=== PATIENT | male | born 1965 | race Caucasian/White ===

== ENCOUNTER → 2018-10-21 09:35 | Outpatient (CLI) | payer OTHER, SELFPAY ==
--- NOTE | 2018-10-21 10:16 | DI.RAD.S_ITS ---
PROCEDURE: XR ANKLE RT MIN 3V INDICATIONS: ankle pain TECHNIQUE: 3 views of the ankle were acquired. COMPARISON: None. FINDINGS: Bones: No fractures or dislocations. Ankle mortise is normally aligned. No suspicious bony lesions. 2 adjacent distal tibial metadiaphyseal junction bone islands are incidentally noted. Soft tissues: No tibiotalar joint effusion. Achilles tendon appears normal. IMPRESSION: Source of ankle pain is not seen. Incidental load is made of 2 adjacent small bone islands within the distal tibial metadiaphyseal marrow space. Dictated by: Jay Sun M.D. on 10/21/2018 at 10:37 Approved by: Jay Sun M.D. on 10/21/2018 at 10:38
== END ==
PROVIDERS: PCP Family Medicine; Visit Provider Physician Assistant
DX: M25.571 Pain in right ankle and joints of right foot (principal)
CPT/HCPCS: 73610

== ENCOUNTER → 2018-12-04 07:30 | Outpatient (CLI) | payer OTHER, SELFPAY ==
--- NOTE | 2018-12-04 | DI.NM.S_ITS ---
PROCEDURE: NM GASTRIC EMPTYING STUDY RADIOPHARMACEUTICAL: 1 mCi Tc-99m sulfur colloid in an egg sandwich. INDICATIONS: SMALL INTESTINAL BACTERIAL OVERGROWTH TECHNIQUE: A Tc-99m labeled sulfur colloid labeled egg sandwich or oatmeal was served to the patient. Anterior and posterior planar images of the abdomen were obtained at 0 minutes and 30 minutes, then at hourly intervals up to 4 hours. The patient was upright and ambulating during the interval. COMPARISON: None. FINDINGS: The stomach has normal size, morphology, and position. There is normal emptying of solid gastric contents from the stomach by visual inspection. No gastroesophageal reflux is visualized. The percentage of tracer retained at specific time points are as follows: Time point Percent gastric retention Normal range 30 minutes 50% 70% or more 1 hour 15% 30% to 90% 2 hours 3% 60% or less 3 hours - 30% or less 4 hours - 10% or less IMPRESSION: More rapid gastric emptying than normal suggesting dumping, which could be seen in early diabetes, cyclic vomiting syndrome, functional dyspepsia or postoperative state. Dictated by: Hector George M.D. on 12/04/2018 at 11:42 Approved by: Hector George M.D. on 12/04/2018 at 11:46
== END ==
PROVIDERS: PCP Family Medicine; Visit Provider Internal Medicine Gastroenterology
DX: A48.8 Other specified bacterial diseases (principal)
CPT/HCPCS: 78264; A9541

== ENCOUNTER → 2019-04-05 08:18 | Outpatient (CLI) | payer OTHER, SELFPAY ==
[2019-04-05 10:13] LABS: Add Manual Diff / Slide Review NO; Basophils Absolute Auto 100 /uL (0-100); Basophils Percent Auto 1.4 % (0-2); Eosinophils Absolute Auto 100 /uL (0-450); Eosinophils Percent Auto 2.8 % (2-4); Hematocrit 45.4 % (41-53); Hemoglobin 15.8 g/dL (13.5-17.5); Lymphocytes Absolute Auto 1900 /uL (1100-4500); Lymphocytes Percent Auto 41.2 % (25-40); Mean Corpuscular HGB Conc 34.9 % (30-36); Mean Corpuscular Hemoglobin 30.5 PG (26-34); Mean Corpuscular Volume 87.6 fL (80-100); Monocytes Absolute Auto 400 /uL (0-900); Monocytes Percent Auto 9.3 % (3-14); Neutrophils Absolute Auto 2100 /uL (1500-7000); Neutrophils Percent Auto 45.3 % (50-75); Platelet Count 173 X10^3/uL (150-400); Red Blood Cell Count 5.18 X10^6/uL (4.5-5.9); Red Cell Distribution Width 12.7 % (11.6-14.8); White Blood Cell Count 4.6 X10^3/uL (4.5-11.0)
[2019-04-05 10:29] LABS: Alanine Aminotransferase 24 IU/L (21-72); Albumin 4.7 g/dL (3.5-5.0); Albumin Globulin Ratio 1.5 (1.0-2.8); Alkaline Phosphatase 49 U/L (38-126); Aspartate Aminotransferase 30 IU/L (17-59); BUN Creatinine Ratio 25.6 (6-22); Blood Urea Nitrogen 23 mg/dL (9-20); Calcium 9.3 mg/dL (8.4-10.2); Carbon Dioxide 27 mmol/L (22-32); Chloride 102 mmol/L (98-107); Cholesterol 237 mg/dL (140-199); Estimated Glomerular Filt Rate > 60.0 mL/min (>60); Globulin 3.1 g/dL (1.7-4.1); Glucose 86 mg/dL (70-100); HDL Cholesterol 34 mg/dL (40-60); HEMOLYSIS 49 (0-50); Sodium 138 mmol/L (137-145); Total Protein 7.8 g/dL (6.3-8.2); Triglycerides 404 mg/dL (35-150)
[2019-04-05 10:43] LABS: Vitamin D 25 Hydroxy (D3) 27.8 ng/mL (30.0-100.0)
[2019-04-05 11:03] LABS: Thyroid Stimulating Hormone 0.83 uIU/mL (0.47-4.68)
== END ==
PROVIDERS: Family Provider Family Medicine; PCP Family Medicine; Visit Provider Family Medicine
DX: E78.5 Hyperlipidemia, unspecified (principal); R53.83 Other fatigue; R79.89 Other specified abnormal findings of blood chemistry; Z13.1 Encounter for screening for diabetes mellitus; Z00.00 Encounter for general adult medical examination without abnormal findings
CPT/HCPCS: 36415; 80053; 80061; 82306; 84153; 84443; 85025

== ENCOUNTER → 2019-04-16 11:07 | Outpatient (CLI) | payer OTHER, SELFPAY ==
[2019-04-16 13:06] LABS: Cholesterol 236 mg/dL (140-199); HDL Cholesterol 43 mg/dL (40-60); LDL Cholesterol Calculated 135 mg/dL (<100); Triglycerides 288 mg/dL (35-150)
== END ==
PROVIDERS: PCP Family Medicine; Visit Provider Family Medicine
DX: E78.1 Pure hyperglyceridemia (principal)
CPT/HCPCS: 36415; 80061; 83036

== ENCOUNTER → 2019-05-21 16:03 | Outpatient (CLI) | payer OTHER, SELFPAY ==
--- NOTE | 2019-05-21 | DI.MRI.S_ITS ---
PROCEDURE: MR ANKLE RT WO CON INDICATIONS: Posterior tibial tendinitis, Right ankle pain TECHNIQUE: Noncontrast sagittal T1 spin echo and T2 fast spin echo with fat saturation, axial proton density fast spin echo and T2 fast spin echo with fat saturation, coronal T1 spin echo and T2 fast spin echo with fat saturation through the ankle/hindfoot. COMPARISON: None. FINDINGS: Image quality: Diagnostic Bones and joints: No acute fracture, dislocation, or suspicious osseous lesion is appreciated involving the osseous structures of the midfoot or hindfoot. The ankle mortise is well-maintained. There are no osteochondral defects evident involving the tibial plafond or talar dome. There are mild degenerative changes of the talonavicular joint. There is unusual appearance of the medial cuneiform, which may be related to previous injury or a congenital variant. There are mild degenerative changes of the 1st tarsometatarsal joint. No significant joint effusions are appreciated. Scattered bone islands involving the distal tibia are present as well as the talar dome. Medial structures: The deltoid ligament is intact. Slight increased signal at the navicular attachment of the spring ligament is identified with focal thickening evident (image 21, series 8). Mild periligamentous edema is present within this region. There is slight increased signal involving the tibialis posterior tendon near the level of the navicular. A small amount of fluid is contained within its corresponding tendon sheath. There is also fluid evident within the flexor hallucis longus and flexor digitorum longus tendon sheaths. However, no abnormal signal involving these tendons is evident. The posterior tibial nerve through the tarsal tunnel appears to be within normal limits in size and signal. There is nonspecific mild increased signal involving the abductor hallucis. Lateral structures: The anterior distal tibiofibular ligament is thickened and moderately irregular, but not completely torn. There is increased signal of the posterior distal tibiofibular ligament, which is otherwise intact. The anterior and posterior talofibular ligaments are intact. There is heterogeneity of the posterior talofibular ligament. The calcaneofibular ligament appears to be intact. There is mild increased signal involving the peroneus longus tendon along the posterior margin of the lateral malleolus. Flattening of the peroneus brevis tendon within this region is present. There is slight increased signal within the corresponding tendon sheaths. Anterior structures: The tibialis anterior, extensor hallucis longus, and extensor digitorum longus tendons appear intact. Posterior and plantar structures: Achilles tendon is intact. Moderate thickening involving the medial band of the plantar fascia is present, measuring up to approximately 7 mm. There is edema about this ligament within the adjacent soft tissues. IMPRESSION: 1. Moderate grade sprain of the spring ligament without complete tear. 2. Minimal tibialis posterior tendinopathy with corresponding tenosynovitis. There is also mild tenosynovitis involving the upper medial flexor tendons. 3. Probable sprain of the abductor hallucis. 4. Possible scarring of the lateral ankle ligaments. No complete tears. 5. Mild peroneus longus tendinopathy. 6. Thickening of the plantar fascia is suggestive of plantar fasciitis. Please correlate clinically. 7. Mild degenerative changes of the midfoot joints. Dictated by: Santiago Zepeda M.D. on 05/22/2019 at 10:19 Approved by: Santiago Zepeda M.D. on 05/22/2019 at 10:30
== END ==
PROVIDERS: PCP Family Medicine; Visit Provider Podiatrist
DX: M76.821 Posterior tibial tendinitis, right leg (principal); S93.491A Sprain of other ligament of right ankle, initial encounter; M25.571 Pain in right ankle and joints of right foot; M19.071 Primary osteoarthritis, right ankle and foot; M65.871 Other synovitis and tenosynovitis, right ankle and foot
CPT/HCPCS: 73721

== ENCOUNTER → 2019-08-11 14:09 | Outpatient (CLI) | payer OTHER, SELFPAY ==
--- NOTE | 2019-08-11 | DI.MRI.S_ITS ---
PROCEDURE: MR KNEE LT WO CON INDICATIONS: Unspecified internal derangement of left knee TECHNIQUE: Noncontrast sagittal PD fast spin echo and T2 fast spin echo with fat saturation, sagittal 3-D FLASH with fat saturation; coronal T1 spin echo and PD fast spin echo with fat saturation, and axial PD fast spin echo with fat saturation through the knee. COMPARISON: None. FINDINGS: Image quality: Diagnostic. Bones and joint: There is no acute fracture or dislocation. No suspicious osseous lesions are evident. There is a small knee joint effusion with a small associated Pantoja's cyst. Small moderate size full thickness defects of the hyaline articular cartilage are noted within the patellofemoral compartment, best appreciated at the apex of the medial and lateral patellar facets with areas of degenerative marrow edema evident along the medial patellar facet. No definite additional full-thickness cartilaginous defects are present throughout the knee. Cruciate ligaments: The anterior and posterior cruciate ligaments are intact. Menisci: There is low-grade partial-thickness tearing involving the posterior root of the medial meniscus. With the additional horizontal tear along the periphery of the posterior horn of the medial meniscus is evident with an associated adjacent para meniscal cyst. The lateral meniscus is intact and otherwise unremarkable. Medial structures: Moderate grade partial-thickness tearing of the medial collateral ligament is more pronounced along the anterior margin of the ligament. There is associated overlying soft tissue edema with fluid contained within its corresponding bursa. No complete tear is appreciated. The semimembranosus tendon insertion is intact. The imaged portions of the pes anserinus tendons are unremarkable. No significant fluid is contained within the pes anserinus bursa. Lateral structures: The popliteal tendon is intact. The lateral collateral ligament proper (fibular collateral ligament) and the proximal tibiofibular ligaments are intact. The distal aspect of the biceps femoris tendon and the iliotibial band are intact. Anterior structures: The quadriceps and patellar tendons are intact. Mild increased signal is noted involving the proximal patellar tendon. There is no significant edema in the infrapatellar fat pad. IMPRESSION: 1. Moderate grade partiall-thickness tearing of the medial collateral ligament. 2. Peripheral tearing of the posterior horn of the medial meniscus with involvement of the posterior meniscal root. 3. [id number] patellofemoral chondromalacia. 4. Small knee joint effusion. 5. Mild patellar tendinopathy. Dictated by: Santiago Zepeda M.D. on 08/11/2019 at 15:27 Approved by: Santiago Zepeda M.D. on 08/11/2019 at 15:36
== END ==
PROVIDERS: PCP Family Medicine; Visit Provider Orthopaedic Surgery
DX: S83.222A Peripheral tear of medial meniscus, current injury, left knee, initial encounter (principal); S83.412A Sprain of medial collateral ligament of left knee, initial encounter; M22.42 Chondromalacia patellae, left knee; M25.462 Effusion, left knee; M67.962 Unspecified disorder of synovium and tendon, left lower leg
CPT/HCPCS: 73721

== ENCOUNTER → 2019-09-22 08:16 | Outpatient (CLI) | payer OTHER, SELFPAY ==
[2019-09-22 08:55] LABS: Cholesterol 277 mg/dL (140-199); HDL Cholesterol 37 mg/dL (40-60); Triglycerides 455 mg/dL (35-150)
== END ==
PROVIDERS: PCP Family Medicine; Visit Provider Family Medicine
DX: E78.1 Pure hyperglyceridemia (principal); E78.5 Hyperlipidemia, unspecified; Z82.49 Family history of ischemic heart disease and other diseases of the circulatory system
CPT/HCPCS: 36415; 80061

== ENCOUNTER → 2019-10-30 10:50 | Outpatient (CLI) | payer OTHER, SELFPAY ==
--- NOTE | 2019-10-30 10:52 | DI.RAD.S_ITS ---
PROCEDURE: XR CHEST 2V INDICATIONS: Cough, h/o multiple episode of bronchitis in 1 year TECHNIQUE: 2 views of the chest were acquired. COMPARISON: None. FINDINGS: Surgical changes and devices: Cervical spine fixation hardware is partially seen. Lungs and pleura: Lungs are clear. No pleural effusions or pneumothorax. Mediastinum: Mediastinal contours are normal. Heart size is normal. Bones and chest wall: Mild dextroconvex scoliotic curvature is seen. Age-appropriate bony degenerative changes are seen. No suspicious bony abnormalities. Soft tissues appear unremarkable. IMPRESSION: No acute cardiopulmonary process is seen. Dictated by: Doug Eric M.D. on 10/30/2019 at 10:22 Approved by: Doug Eric M.D. on 10/30/2019 at 10:23
== END ==
PROVIDERS: PCP Family Medicine; Referring Provider Nurse Practitioner; Visit Provider Nurse Practitioner
DX: R05 Cough (principal)
CPT/HCPCS: 71046

== ENCOUNTER → 2019-11-01 09:38 | Outpatient (CLI) | payer OTHER, SELFPAY ==
[2019-11-01 11:23] LABS: Influenza A - CEPHEID Flu A NEGATIVE (NEGATIVE); Influenza B - CEPHEID Flu B NEGATIVE (NEGATIVE)
== END ==
PROVIDERS: PCP Family Medicine; Visit Provider Registered Nurse
DX: J40 Bronchitis, not specified as acute or chronic (principal)
CPT/HCPCS: 87502

== ENCOUNTER → 2019-11-12 08:00 | Outpatient (CLI) | payer OTHER, SELFPAY ==
[2019-11-12 09:36] LABS: Hep C Virus Ab w/Reflex Quant NEGATIVE s/c (NEGATIVE)
== END ==
PROVIDERS: PCP Family Medicine; Referring Provider Dermatology; Visit Provider Dermatology
DX: L30.9 Dermatitis, unspecified (principal)
CPT/HCPCS: 36415; 86803

== ENCOUNTER 2019-11-24 19:19 | Observation (INO) | payer OTHER, SELFPAY ==
[2019-11-24 19:23] VITALS: BP 123/58; PULSE 77; RESP 22; TEMP 36.2; O2SAT 100
--- NOTE | 2019-11-24 19:37 | DI.RAD.S_ITS ---
PROCEDURE: XR ACUTE ABDOMEN SERIES INDICATIONS: abd pain/nausea TECHNIQUE: One view chest and two views of the abdomen were acquired. COMPARISON: None. FINDINGS: Surgical changes and devices: Fusion hardware in lower cervical spine is seen. Chest: Lungs are clear. Heart size is normal. No pleural effusions. No pneumoperitoneum. Abdomen: Bowel gas pattern is nonspecific for obstruction. No suspicious calcifications. Visualized solid organ contours appear normal. Bones: No suspicious bony lesions. IMPRESSION: Nonspecific bowel gas pattern. No gross free air. No acute cardiopulmonary pathology. Dictated by: Braulio Reed M.D. on 11/24/2019 at 20:22 Approved by: Braulio Reed M.D. on 11/24/2019 at 20:23
[2019-11-24] MEDS: ONDANSETRON 4 MG/2 ML INJ IV (20:12)
[2019-11-24 20:17] LABS: Add Manual Diff / Slide Review NO; Basophils Absolute Auto 0 /uL (0-100); Basophils Percent Auto 0.3 % (0-2); Eosinophils Absolute Auto 0 /uL (0-450); Eosinophils Percent Auto 0.1 % (2-4); Hematocrit 44.1 % (41-53); Hemoglobin 15.3 g/dL (13.5-17.5); Lymphocytes Absolute Auto 1400 /uL (1100-4500); Lymphocytes Percent Auto 12.1 % (25-40); Mean Corpuscular HGB Conc 34.8 % (30-36); Mean Corpuscular Hemoglobin 30.3 PG (26-34); Monocytes Absolute Auto 400 /uL (0-900); Monocytes Percent Auto 3.4 % (3-14); Neutrophils Absolute Auto 9400 /uL (1500-7000); Neutrophils Percent Auto 84.1 % (50-75); Platelet Count 203 X10^3/uL (150-400); Red Blood Cell Count 5.07 X10^6/uL (4.5-5.9); Red Cell Distribution Width 13.2 % (11.6-14.8); White Blood Cell Count 11.2 X10^3/uL (4.5-11.0)
[2019-11-24 20:20] LABS: Alanine Aminotransferase 32 IU/L (<50); Albumin 4.7 g/dL (3.5-5.0); Albumin Globulin Ratio 1.5 (1.0-2.8); Alkaline Phosphatase 56 U/L (38-126); Aspartate Aminotransferase 32 IU/L (17-59); BUN Creatinine Ratio 22.5 (6-22); Bilirubin Total 0.8 mg/dL (0.2-1.3); Blood Urea Nitrogen 18 mg/dL (9-20); Calcium 9.8 mg/dL (8.4-10.2); Carbon Dioxide 23 mmol/L (22-32); Chloride 105 mmol/L (98-107); Estimated Glomerular Filt Rate > 60.0 mL/min (>60); Globulin 3.2 g/dL (1.7-4.1); Glucose 121 mg/dL (70-100); HEMOLYSIS < 15 (0-50); Lipase 59 U/L (23-300); Potassium 4.1 mmol/L (3.4-5.1); Sodium 137 mmol/L (137-145); Total Protein 7.9 g/dL (6.3-8.2)
--- NOTE | 2019-11-24 20:28 | ED_ITS ---
HPI - Abdominal Pain General Chief Complaint: Abdominal Pain Stated Complaint: severe stomach pain Time Seen by Provider: 11/24/19 20:28 Source: patient Mode of arrival: Ambulatory Limitations: no limitations History of Present Illness HPI narrative: 54-year-old male comes in with complaint of abdominal pain. Patient states pain started about 6 hours prior to arrival. Started as crampy with increasing frequency and is now constant. Patient states now radiating towards his back. He states it has not changed location. Sort of mid upper abdomen. Patient has not had fevers but he has felt chilled. He has not been sweaty. Denies chest pain or shortness of breath. Denies any change in location of the pain other than now radiating towards his back. He has not had a bowel movement in about 12:24 p.m. he has been nauseated, tried to name a comes all vomit but was unable to. He states before he had a normal bowel movement. He does not think he has a passing gas for about 12 hours. Patient states he has had back surgery in the past. He has also had hernia repair when he was a young child. He has not had any other surgeries. He states he is not on any medications regularly. No current tobacco, occasional alcohol, no illicit street drugs. Dr. Avilez is his primary care. Related Data Previous Rx's Medication Instructions Recorded zolpidem 10 mg tablet 10 mg PO BEDTIME PRN #90 tab 08/10/19 Allergies Allergy/AdvReac Type Severity Reaction Status Date / Time No Known Drug Allergies Allergy Verified 11/01/19 08:45 Review of Systems Review of Systems ROS Unobtainable: All systems reviewed & are unremarkable except as noted in HPI and below Patient History Medical History Genital herpes (Acute) Hyperlipidemia (Chronic) Insomnia (Chronic) Small intestinal bacterial overgrowth (Chronic) Social History marital status: household members: family housing: house education level: college occupational status: employed Smoking Status: Former smoker second hand exposure: No alcohol intake: current substance use type: does not use Smoking Status: Former smoker Exam Narrative Exam Narrative: GENERAL: Alert and oriented x three, obese, well-appearing male in moderate distress. HEENT: Head normocephalic, atraumatic, EOMI, pupils reactive, face symmetric, moist mucous membranes NECK: Supple, full range of motion CARDIOVASCULAR: Regular rate and rhythm without murmurs, rubs or gallops. RESPIRATORY: Breath sounds equal bilaterally, no wheezes rales or rhonchi. ABDOMEN: Soft, no increase in tenderness with palpation but does make patient nauseated. Particularly epigastric and upper abdominal bilaterally, no lower abdominal tenderness. Normoactive bowel sounds all 4 quadrants. No guarding or rebound, rigidity, no pulsatile mass, no bruit : No CVA tenderness EXTREMITIES: Normal range of motion, no clubbing or edema. Cap refill less than 2 seconds of bilateral lower extremities. Neurovascularly intact NEUROLOGICAL: Cranial nerves II through XII grossly intact. Moving all extremities SKIN: Warm, dry, no petechiae, no rashes or lesions. Initial Vital Signs Initial Vital Signs: Vital Signs Temperature 97.1 F L 11/24/19 19:23 Pulse Rate 77 11/24/19 19:23 Respiratory Rate 22 11/24/19 19:23 Blood Pressure 123/58 L 11/24/19 19:23 Pulse Oximetry 100 11/24/19 19:23 Course Orders Ordered: ED Orders 11/24/19 19:37 XR acute abdomen series Stat 11/24/19 19:42 EKG-12 Lead Stat 11/24/19 19:45 Complete Blood Count AUTO DIFF Stat Comprehensive Metabolic Panel Stat Lipase Stat Troponin I Stat 11/24/19 20:47 CT angio chest abdomen pelvis Stat Hydromorphone HCl (Dilaudid) 0.5 mg IV Q2H PRN PRN Reason: Pain, Severe (7-10) Last Admin: 11/25/19 04:02 Dose: 0.5 mg Documented by: Admin: 11/25/19 02:07 Dose: 0.5 mg Documented by: Admin: 11/25/19 00:11 Dose: 0.5 mg Documented by: ADELFO Sodium Chloride (Normal Saline 0.9%) 1,000 mls @ 125 mls/hr IV CONT XIOMY Last Admin: 11/24/19 23:47 Dose: 125 mls/hr Documented by: ADELFO Ondansetron HCl (Zofran) 4 mg IV Q4HR PRN PRN Reason: Nausea And Vomiting Zolpidem Tartrate (Ambien) 10 mg PO BEDTIME PRN PRN Reason: Sleep Last Admin: 11/25/19 00:11 Dose: 5 mg Documented by: ADELFO Discontinued Medications Hydromorphone HCl (Dilaudid) 0.5 mg IV NOW ONE Stop: 11/24/19 21:50 Last Admin: 11/24/19 21:59 Dose: 0.5 mg Documented by: AMNA Sodium Chloride (Normal Saline 0.9%) 1,000 mls @ 1,000 mls/hr IV BOLUS ONE Stop: 11/24/19 21:28 Last Infusion: 11/24/19 21:04 Dose: 0 mls/hr Documented by: Admin: 11/24/19 20:32 Dose: 1,000 mls/hr Documented by: ANDREZ Piperacillin/Tazobactam/Dextrose (Zosyn) 3.375 gm in 50 mls @ 100 mls/hr IV NOW ONE Stop: 11/24/19 22:20 Last Infusion: 11/24/19 22:50 Dose: 0 mls/hr Documented by: Admin: 11/24/19 22:37 Dose: 100 mls/hr Documented by: CHASE Morphine Sulfate (Morphine) 4 mg IV NOW ONE Stop: 11/24/19 20:48 Last Admin: 11/24/19 21:10 Dose: 4 mg Documented by: CHASE Ondansetron HCl (Zofran) 4 mg IV NOW ONE Stop: 11/24/19 19:34 Last Admin: 11/24/19 20:12 Dose: 4 mg Documented by: ANDREZ Vital Signs Vital signs: Vital Signs - 8 hr 11/24/19 21:00 Pulse Rate 67 Respiratory Rate 20 Blood Pressure [Right Arm] 127/27 L Pulse Oximetry 99 MDM - Abdominal Pain Lab Data Attestation: I reviewed the patient's lab results. Result diagrams: 11/24/19 19:45 11/24/19 19:45 Labs: Lab Results 11/24/19 11/24/19 Range/Units 19:45 19:45 WBC 11.2 H (4.5-11.0) X10^3/uL RBC 5.07 (4.5-5.9) X10^6/uL Hgb 15.3 (13.5-17.5) g/dL Hct 44.1 (41-53) % MCV 87.0 (80-100) fL MCH 30.3 (26-34) PG MCHC 34.8 (30-36) % RDW 13.2 (11.6-14.8) % Plt Count 203 (150-400) X10^3/uL Neut % (Auto) 84.1 H (50-75) % Lymph % (Auto) 12.1 L (25-40) % [place] % (Auto) 3.4 (3-14) % Eos % (Auto) 0.1 L (2-4) % Baso % (Auto) 0.3 (0-2) % Neut # (Auto) 9400 H (1427-5286) /uL Lymph # (Auto) 1400 (4910-5298) /uL [place] # (Auto) 400 (0-900) /uL Eos # (Auto) 0 (0-450) /uL Baso # (Auto) 0 (0-100) /uL Sodium 137 (137-145) mmol/L Potassium 4.1 (3.4-5.1) mmol/L Chloride 105 (98-107) mmol/L Carbon Dioxide 23 (22-32) mmol/L BUN 18 (9-20) mg/dL Creatinine 0.80 (0.66-1.25) mg/dL Estimated GFR > 60.0 (>60) mL/min BUN/Creatinine Ratio 22.5 H (6-22) Glucose 121 H (70-100) mg/dL Calcium 9.8 (8.4-10.2) mg/dL Total Bilirubin 0.8 (0.2-1.3) mg/dL AST 32 (17-59) IU/L ALT 32 (<50) IU/L Alkaline Phosphatase 56 (38-126) U/L Troponin I < 0.012 (0.01-0.034) ng/mL Total Protein 7.9 (6.3-8.2) g/dL Albumin 4.7 (3.5-5.0) g/dL Globulin 3.2 (1.7-4.1) g/dL Albumin/Globulin Ratio 1.5 (1.0-2.8) Lipase 59 (23-300) U/L Imaging Data Abdominal x-ray: Radiologist's Impression: [address] [address] XRay Report Signed Patient: Lazara Perez#: [id number] : 1965Acct:[id number] Age/Sex: 54 / MDate of Service: 11/24/19 Loc: ED Accession Number: [id number] Procedure: XR acute abdomen series Ordering Provider: Lisseth Martinez D.O. PROCEDURE: XR ACUTE ABDOMEN SERIES INDICATIONS: abd pain/nausea TECHNIQUE: One view chest and two views of the abdomen were acquired. COMPARISON: None. FINDINGS: Surgical changes and devices: Fusion hardware in lower cervical spine is seen. Chest: Lungs are clear. Heart size is normal. No pleural effusions. No pneumoperitoneum. Abdomen: Bowel gas pattern is nonspecific for obstruction. No suspicious calcifications. Visualized solid organ contours appear normal. Bones: No suspicious bony lesions. IMPRESSION: Nonspecific bowel gas pattern. No gross free air. No acute cardiopul monary pathology. Dictated by: Braulio Reed M.D. on 11/24/2019 at 20:22 Approved by: Braulio Reed M.D. on 11/24/2019 at 20:23 ECG Data Attestation: I personally reviewed and interpreted this ECG as follows: Prior ECG tracings: not available for review Interpretation: Sinus rhythm rate of 73 P are 150 QRS of [address] depression in lead 3, not appreciated in 2 or AVF. No elevation appreciated. Incomplete bundle branch block. No prior for review. MDM Narrative Medical decision making narrative: Of abdominal pain started out crampy now constant radiating also towards his back. His initial labs show mildly elevated white count with neutrophils 84, patient labs show glucose of 121 but otherwise normal electrolytes and LFTs with a negative lipase. Troponin is negative and patient does not have any acute ST changes on his EKG. Was given IV fluids, Zofran and morphine for pain control, on recheck patient is still quite uncomfortable. Angio was involved patient may have more gallbladder or possibly colitis or bowel obstruction as he has not had a bowel movement but with his radiation to his back there is some concern for possible dissection. Patient is not hypertensive in the department. Imaging shows appendicitis. Discussed with Dr. Mejia with General surgery, plan for IV antibiotics and Zosyn was started. Plan for NPO and surgery this a.m.. Patient is feeling much better after 2nd dose of pain medication. Discharge Plan Departure Patient Disposition: Admitted as Observation Clinical Impression: Acute appendicitis Discharge Date/Time: 11/24/19 22:52 Referrals: Geovanna Avilez MD [Primary Care Provider] - Admit Date/Time: 11/24/19 22:12 Admit Provider: Silver Mejia
[2019-11-24 20:32] LABS: Troponin I < 0.012 ng/mL (0.01-0.034)
[2019-11-24] MEDS: SODIUM CHLORIDE 0.9% 1,000 ML 1000 ML IV (20:32)
--- NOTE | 2019-11-24 20:47 | DI.CT.S_ITS ---
PROCEDURE: CT ANGIO CHEST ABDOMEN PELVIS INDICATIONS: mid abdominal pain, radiates to back, no BM x 12 hrs, no vom TECHNIQUE: Precontrast 5 mm thick sections acquired from the lung apices to the iliac crests. After the administration of intravenous contrast, 2.5 mm thick sections again acquired from the lung apices to the iliac crests. Maximum intensity projection (MIP) oblique sagittal and coronal reformats were then acquired. For radiation dose reduction, the following was used: automated exposure control. COMPARISON: None. FINDINGS: Image quality: Excellent. AORTA: Thoracic and abdominal aorta is normal in size. There is no aortic dissection or aneurysm. Mild atherosclerotic disease in distal abdominal aorta is seen. CHEST: Lungs and pleura: No acute airspace opacities. No pleural effusions or pneumothorax. Central and peripheral airways are patent and normal in caliber. Mediastinum: Heart size is normal. No pericardial effusion. No mediastinal or hilar adenopathy by size criteria. Central pulmonary arteries are normal in size. Esophagus is normal in caliber. No hiatal hernias. Bones and chest wall: No axillary adenopathy by size criteria. Thyroid gland is within normal limits. No suspicious bony lesions. No vertebral body compression fractures. ABDOMEN: Vasculature: Celiac trunk and mesenteric arteries are patent. Renal arteries are also patent. Solid organs: Liver is normal in size and enhancement. There is moderate to severe hepatic steatosis. Gallbladder is unremarkable.. Biliary system is non dilated. Pancreas enhances normally. Spleen is normal in size and enhancement. No adrenal nodules. Both kidneys are normal in size and enhancement, without hydronephrosis. Peritoneum and bowel: There is no bowel obstruction. Appendix appears enlarged with mild periappendiceal fat stranding and appendiceal wall thickening. Multiple appendicoliths are seen and measures up to 8 mm in size near the neck of the appendix. Finding is concerning for uncomplicated acute appendicitis. No abscess collection. No other area of abnormal bowel wall thickening. No free fluid or free air. Nodes and vessels: No retroperitoneal or mesenteric adenopathy by size criteria. Inferior vena cava is normal in morphology. Miscellaneous: No ventral hernias. PELVIS: Genitourinary: Bladder wall thickness is normal. Miscellaneous: No inguinal hernias or adenopathy. No ventral hernias. Bones: No suspicious bony lesions. No vertebral body compression fractures. Degenerative endplate changes throughout thoracic and lumbar spine is seen. IMPRESSION: 1. No aortic aneurysm or dissection. [place]. branches of thoracic and abdominal aorta show no hemodynamically significant stenosis or aneurysm. No gross pulmonary emboli. 2. Finding is concerning for uncomplicated acute appendicitis with appendicoliths. No abscess collection. No free fluid or free air. 3. Hepatic steatosis. Dictated by: Braulio Reed M.D. on 11/24/2019 at 21:17 Approved by: Braulio Reed M.D. on 11/24/2019 at 21:21
[2019-11-24 21:00] VITALS: BP 127/27; PULSE 67; RESP 20; O2SAT 99
[2019-11-24] MEDS: MORPHINE 4 MG/ML INJ IV (21:10)
[2019-11-24] MEDS: HYDROMORPHONE 0.5 MG INJ IV (21:59)
[2019-11-24 22:30] VITALS: BP 137/82; PULSE 74; RESP 18; O2SAT 96
[2019-11-24] MEDS: PIPERACILLIN-TAZO 3.375 GM/50 ML FROZ.PIGGY IV (22:37)
--- NOTE | 2019-11-24 22:57 | PC.ADMIT ---
[email or web address] Admission Note: The patient,Orlando Perez,54 y/o, was given written information regarding hospital policies, unit procedures and contact persons. Pt arrived from ED. A/OX4. VSS. RA. Denies pain presently. Oriented to room and call system. Patient's smoking status: Former smoker. Vital Signs - 8 hr 11/24/19 19:23 11/24/19 21:00 11/24/19 22:30 Temperature 97.1 F L Pulse Rate 77 67 74 Respiratory Rate 22 20 18 Blood Pressure 123/58 L Blood Pressure [Right Arm] 127/27 L 137/82 Pulse Oximetry 100 99 96
[2019-11-24 23:00] VITALS: BP 125/82; PULSE 73; RESP 16; TEMP 36.4; O2SAT 96
[2019-11-24] MEDS: SODIUM CHLORIDE 0.9% 1,000 ML 125 ML IV (23:47)
[2019-11-24 23:49] VITALS: BMI 31.1
[2019-11-25] VITALS (21 sets, daily range): BP systolic 85–130; BP diastolic 54–87; PULSE 77–98; RESP 13–23; TEMP 36.2–37; O2SAT 86–98
--- NOTE | 2019-11-25 | PATH_ITS ---
[facility] Accession Number: [id number] . 01 Material submitted: . appendix - APPENDIX . 01 Clinical history: . SEVERE STOMACH PAIN . 02 Diagnosis: Appendix, Appendectomy: Acute appendicitis and serositis. MRV 11/29/2019 1602 Local . 02 Electronically signed: . Iraida Sherwood MD, Pathologist NPI- [id number] . 01 Gross description: . Received in formalin, labeled appendix, is an intact appendix (length-8.7 cm, diameter-1.0 cm) with jones-pink, smooth, focally exudate-covered serosa and attached mesoappendix (up to 1.2 cm in depth). The resection margin is received open. The lumen contains red-brown, solid-soft material and brown, turbid fluid. The wall is up to 0.2 cm thick. No nodules, masses or lesions are identified. The resection margin is inked blue. Section code: (A1) resection margin en face and three [employer]eles[employer] representative serial sections; (A2) one-half of the bivalved tip. ([id number]) /MRV 11/26/2019 1339 Local . 02 Pathologist provided ICD-10: K35.80 . 02 CPT . 526703 Performed at: 01 [facility] [address], [place], [place] [id number] MD Garcia Ruiz MD Phone: [phone] Performed at: 02 [facility] [address] [place], [place] [id number] MD Radha Lewis MD Phone: [phone]
[2019-11-25] MEDS: ZOLPIDEM 5 MG TABLET 10 MG PO (00:11)
[2019-11-25] MEDS: HYDROMORPHONE 0.5 MG INJ IV ×3 (00:11→04:02)
--- NOTE | 2019-11-25 01:26 | PC.ADMIT ---
Addendum entered by Rika Serrato R.N. 11/25/19 06:25: Surgical staff here to take patient to surgery. Original Note: Up to acute care from ER per stretcher at 2250. Is alert and oriented. Breath sounds CTA with RA sat of 96%. HRR. Denies current nausea. BT present and abdomen is soft; denies tenderness. Is having mid abdominal pain which he states is 5/10 severity and feels crampy; medicated with Dilaudid. States he has not voided since prior to coming to ER; will monitor. Is able to move self in bed and safe for independent ambulation but instructed to call for assistance when getting up to bathroom due to IV. Skin intact. Requested Ambien for sleep (usually takes 10mg every night at home) so Dr Mejia contacted and order received; patient requested only 5mg at this time. Is NPO for planned appendectomy in a.m. and patient verbalizes understanding. Fall risk score is moderate; patient verbalizes agreement to call for assistance. [email or web address] Admission Note: The patient,Orlando Perez,54 y/o, was given written information regarding hospital policies, unit procedures and contact persons. Patient's smoking status: Former smoker. Vital Signs - 8 hr 11/24/19 19:23 11/24/19 21:00 11/24/19 22:30 Temperature 97.1 F L Pulse Rate 77 67 74 Respiratory Rate 22 20 18 Blood Pressure 123/58 L Blood Pressure [Right Arm] 127/27 L 137/82 Pulse Oximetry 100 99 96 11/24/19 23:00 Temperature 97.5 F L Pulse Rate 73 Respiratory Rate 16 Blood Pressure 125/82 Blood Pressure [Right Arm] Pulse Oximetry 96
[2019-11-25 03:56] LABS: Bacteria Urine None Seen; RBC Urine None Seen (0-5/HPF); WBC Urine None Seen (0-5/HPF)
[2019-11-25 03:57] LABS: Appearance Urine UA CLEAR; Bilirubin Urine UA NEGATIVE (NEGATIVE); Color Urine UA YELLOW; Glucose Urine UA NEGATIVE (Negative); Ketones Urine UA NEGATIVE (NEGATIVE); Leukocyte Esterase Urine UA NEGATIVE (NEGATIVE); Nitrite Urine UA NEGATIVE (Negative); Occult Blood Urine UA NEGATIVE (Negative); Protein Urine UA NEGATIVE (Negative); Urobilinogen Urine UA 0.2 E.U./dL (0.2); pH Urine UA 6.5 (4.5-8.0)
[2019-11-25 04:05] LABS: Culture Indicated Urine Cult Not Indicated
--- NOTE | 2019-11-25 05:58 | P.HP_ITS ---
History of Present Illness History of Present Illness Date Patient Seen: 11/25/19 Time Patient Seen: 05:58 Chief complaint: severe stomach pain Narrative: 54-year-old white male with 1 day history of lower abdominal pain actually somewhat radiating into his back now centered in the right lower abdomen. He has had some nausea no vomiting he has had no diarrhea. He came to the emergency department last night where [place] [id number] scan was done which demonstrates acute uncomplicated appendicitis. 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 He denies diabetes heart disease or hypertension has no significant medical history but has had spine john rgery in the past Patient History Medical History Genital herpes (Acute) Hyperlipidemia (Chronic) Insomnia (Chronic) Small intestinal bacterial overgrowth (Chronic) Family & Social History Family History Father Myocardial infarction Mother Ovarian cancer Social History: household members family Prior Living Arrangements House Safety & Behavioral: Feels Safe in Current Yes Environment Been Physically Hurt or No Threatened By a Person Suicidal Ideation Description None Tobacco & Substance use: Tobacco type cigarettes Smoking Status Former smoker alcohol intake current alcohol intake frequency holiday/special occasion Substance Use Type does not use Meds Home Medications and Allergies Home Medications Medication Instructions Recorded Confirmed Type zolpidem 10 mg tablet 10 mg PO BEDTIME PRN #90 tab 08/10/19 11/25/19 Rx Allergies Allergy/AdvReac Type Severity Reaction Status Date / Time No Known Drug Allergies Allergy Verified 11/01/19 08:45 Review of Systems Review of Systems ROS: Yes All systems reviewed with the patient and are negative except as otherwise documented Exam Vital Signs (past 8 hours): - 11/24/19 22:30 11/24/19 23:00 11/25/19 05:05 Temperature 97.5 F L 98.3 F Pulse Rate 74 73 87 Respiratory Rate 18 16 16 Blood Pressure 125/82 130/78 Blood Pressure [Right Arm] 137/82 Pulse Oximetry 96 96 94 Oxygen Delivery Method Room Air Oxygen Flow Rate 0 Narrative Exam Narrative: Patient is afebrile complaining of right lower abdominal pain Ears nose and throat are normal Neck no adenopathy Lungs are clear with no rales or wheezes Heart regular rhythm no murmur Abdomen shows exquisite right lower quadrant tenderness with guarding and some rebound tenderness. No masses are palpated there is no organomegaly. Extremities are normal neurologic intact Objective Labs Result Diagrams: 11/24/19 19:45 11/24/19 19:45 Labs: Laboratory Results - last 24 hr 11/24/19 11/24/19 11/25/19 19:45 19:45 03:30 WBC 11.2 H RBC 5.07 Hgb 15.3 Hct 44.1 MCV 87.0 MCH 30.3 MCHC 34.8 RDW 13.2 Plt Count 203 Neut % (Auto) 84.1 H Lymph % (Auto) 12.1 L [place] % (Auto) 3.4 Eos % (Auto) 0.1 L Baso % (Auto) 0.3 Neut # (Auto) 9400 H Lymph # (Auto) 1400 [place] # (Auto) 400 Eos # (Auto) 0 Baso # (Auto) 0 Sodium 137 Potassium 4.1 Chloride 105 Carbon Dioxide 23 BUN 18 Creatinine 0.80 Estimated GFR > 60.0 BUN/Creatinine Ratio 22.5 H Glucose 121 H Calcium 9.8 Total Bilirubin 0.8 AST 32 ALT 32 Alkaline Phosphatase 56 Troponin I < 0.012 Total Protein 7.9 Albumin 4.7 Globulin 3.2 Albumin/Globulin Ratio 1.5 Lipase 59 Urine Color Yellow Urine Appearance Clear Urine pH 6.5 Ur Specific [place] 1.020 Urine Protein Negative Urine Glucose (UA) Negative Urine Ketones Negative Urine Occult Blood Negative Urine Nitrate Negative Urine Bilirubin Negative Urine Urobilinogen 0.2 Ur Leukocyte Esterase Negative Urine RBC None seen Urine WBC None seen Urine Bacteria None seen Ur Culture Indicated? Cult not indicated Assessment & Plan Assessment & Plan narrative: Patient has acute uncomplicated appendicitis based on imaging history and physical. He has received intravenous Zosyn and IV fluids overnight. He is now ready for appendectomy early this morning. The patient understands and agrees and has no unanswered questions
[2019-11-25] MEDS: LACTATED RINGERS 1,000 ML 120 ML IV ×2 (06:30→07:58)
[2019-11-25] MEDS: PIPERACILLIN-TAZO 3.375 GM/50 ML FROZ.PIGGY IV (06:40)
--- NOTE | 2019-11-25 06:55 | SUR.OPER ---
Supine on padded OR bed, head on pillow, arms secured on padded arm boards at <90 degrees abduction, legs uncrossed, safety belt at thigh, tape over blanket over lower legs.
[2019-11-25] MEDS: BUPIVACAINE 0.5% W/ EPI (PF) 10 ML VIAL 30 ML INJ (07:04)
[2019-11-25] MEDS: SODIUM CHLORIDE IRRIG SOLUTION 1,000 ML, BACITRACIN 50,000 UNIT IRR (07:07)
[2019-11-25] MEDS: NEOMYCIN/POLYMYXIN/BACITRA UD OINT 1 EACH TOP (07:08)
--- NOTE | 2019-11-25 07:27 | PM.OP.1 ---
Operative Date/Time/Diagnoses Date of procedure: 11/25/19 Time of procedure: 07:27 Pre-op diagnosis: Acute uncomplicated appendicitis Post-op diagnosis: same Procedure & Clinicians Procedure: Appendectomy Same procedure as scheduled: Yes Surgeon: Silver Mejia Click Yes if Unassisted: Yes Anesthesia Type: General Operative Notes Findings: Gangrenous acute appendicitis without abscess Closure Type: primary Specimen(s): other (Peritoneal cultures and gangrenous appendix) Estimated Blood Loss (mL): 50 Blood products transfused: none Procedure in detail: The patient was properly identified during surgical pause prepped and draped in a sterile fashion exposure of the right lower quadrant of the abdomen. A standard Brandan-Ricardo incision was made over McBurney's point. The oblique muscles split in the great iron fashion so as to expose the peritoneum which was elevated and entered avoiding injury to the underlying structures. The cecum was rotated into the wound. I could palpate an enlarged appendix which was then delivered into the wound as well. The appendix was gangrenous. There was no abscess formation. There was turbid fluid around the appendix which was cultured for aerobes and anaerobes. The mesoappendix divided between clamps the vessels ligated with 2 0 Vicryl for excellent hemostasis the base the appendix was closed with a TA 30? stapler and the appendix was removed above the staple line. In the staple line was intact there was no bleeding. The cecum rotated back into the pelvis. The pelvis was then irrigated with a L of sterile saline containing bacitracin. There was no purulence no bleeding. The peritoneum closed with running 2 0 Vicryl. The fascia closed with 1. PDS. The subcu irrigated with bacitracin saline and the skin closed with celestino sterile dressings applied procedure was very well tolerated. Complications: none Post-operative Condition: stable Disposition: PACU
[2019-11-25] MEDS: HYDROMORPHONE 2 MG INJ IV ×3 (07:55→08:07)
[2019-11-25] MEDS: GABAPENTIN 300 MG CAPSULE PO (08:29)
[2019-11-25] MEDS: ACETAMINOPHEN 325 MG TABLET 975 MG PO (08:29)
--- NOTE | 2019-11-25 08:39 | SUR.PHASEI ---
Patient transferred to the floor by Roseline
[2019-11-25] MEDS: SODIUM CHLORIDE 0.9% FLUSH 10 ML IV (10:00)
[2019-11-25] MEDS: LACTATED RINGERS 1,000 ML 100 ML IV ×2 (10:00→21:28)
[2019-11-25] MEDS: KETOROLAC 30 MG/ML VIAL IV ×2 (10:08→18:56)
--- NOTE | 2019-11-25 11:25 | PC.NURSE ---
Addendum entered by Nan Falk R.N. 11/25/19 13:56: Assisted pt to BR at 1145, BP cuff removed. 1200 post op vital not taken, taken at a later time. Original Note: Day Shift- Report rec'd from LONDON Macias in PACU at 0820 on current status update. Pt arrived back to unit room 203 at 0843 via bed. Bedside abd check of dressing done, RLQ abd dressing CDI. Pt re-oriented to call light, bed functions. Pt wants to sleep, O2 sat 95% on 2L NC, continuous O2 monitoring for now, only wanted ice chips. O2 NC decreased to 1l NC at 1010, upon reassessment, O2 sat 94% on 1L NC. At 1010, pt reported 7/10 aching to incision area on abd, Scheduled Toradol given slightly early with good effect. Pt again only wanted ice chips at this time. Pt's Linwood at bedside stated that when pt had his last surgery, it took several hours for pt to be more alert and interactive. Will monitor. Spoke with Dr. Arellano via phone at 1120, request to discontinue PRN Percocet as pt stated was not effective for him in the past and his Linwood at bedside agrees. Verbal order to change to [place] 1-2 tabs Q4hr prn.
[2019-11-25] MEDS: FAMOTIDINE 20 MG/50 ML PIGGYBACK 200 MG IV (12:13)
[2019-11-25] MEDS: HYDROCODONE/ACET 5/325 TABLET 1 TAB PO (12:14)
--- NOTE | 2019-11-25 15:01 | CM.DANOTE ---
Discharge Planning/Care Management DCP: assessment: case received, EMR reviewed. Discussed in Team Rounds. Pt is a 54 year old male who admitted last night with severe abdominal pain. Payer: Geovani Ferguson PCP: Violeta Avilez Admitted to [facility]: Dr. Guevara who took pt to surgery this morning: open appendectomy: gangrenous without abscess. Admission status: OBS: per UR LONDON Delarosa P: will check in tomorrow and follow prn for any d/c needs that may arise. CM Discharge Assessment Start: 11/25/19 14:59 Freq: Status: Active Protocol: Document 11/25/19 15:00 ITV (Rec: 11/25/19 15:01 ITV [id number]) Discharge Planning Assessment Advance Directives? No History Provided By Medical Record Prior Living Arrangements House Is patient alert and oriented? Yes Review Status In Process
--- NOTE | 2019-11-25 16:06 | PM.PN.1 ---
Subjective Subjective Date Patient Seen: 11/25/19 Time Patient Seen: 16:06 Interval history: Patient is 8 or 9 hours post open appendectomy for a gangrenous appendix. Patient did not have any peritonitis or pelvic abscess. He is resting comfortably in bed and feels much better than before surgery. Exam Vital Signs (past 8 hours): - 11/25/19 08:11 11/25/19 08:26 11/25/19 08:27 Temperature 98.6 F Pulse Rate 87 98 H Respiratory Rate 13 13 Blood Pressure 116/78 117/87 Pulse Oximetry 95 97 11/25/19 08:45 11/25/19 08:52 11/25/19 09:38 Temperature 98.3 F 98.5 F Pulse Rate 82 80 87 Respiratory Rate 16 16 Blood Pressure 114/85 122/79 Pulse Oximetry 94 95 97 11/25/19 10:10 11/25/19 11:10 11/25/19 11:18 Temperature 98.4 F 98.0 F Pulse Rate 84 79 Respiratory Rate 16 16 Blood Pressure 127/82 121/79 Pulse Oximetry 96 94 95 11/25/19 16:00 Temperature 97.7 F Pulse Rate 80 Respiratory Rate 16 Blood Pressure 119/77 Pulse Oximetry 95 Oxygen Delivery Method Nasal Cannula Oxygen Flow Rate 1 Narrative Exam Narrative: Patient is alert and oriented he is afebrile vital signs are stable. Abdomen is fairly soft with normal incisional discomfort. Dressing is dry and intact. Objective Labs Result Diagrams: 11/24/19 19:45 11/24/19 19:45 Labs: Laboratory Results - last 24 hr 11/24/19 11/24/19 11/25/19 19:45 19:45 03:30 WBC 11.2 H RBC 5.07 Hgb 15.3 Hct 44.1 MCV 87.0 MCH 30.3 MCHC 34.8 RDW 13.2 Plt Count 203 Neut % (Auto) 84.1 H Lymph % (Auto) 12.1 L [place] % (Auto) 3.4 Eos % (Auto) 0.1 L Baso % (Auto) 0.3 Neut # (Auto) 9400 H Lymph # (Auto) 1400 [place] # (Auto) 400 Eos # (Auto) 0 Baso # (Auto) 0 Sodium 137 Potassium 4.1 Chloride 105 Carbon Dioxide 23 BUN 18 Creatinine 0.80 Estimated GFR > 60.0 BUN/Creatinine Ratio 22.5 H Glucose 121 H Calcium 9.8 Total Bilirubin 0.8 AST 32 ALT 32 Alkaline Phosphatase 56 Troponin I < 0.012 Total Protein 7.9 Albumin 4.7 Globulin 3.2 Albumin/Globulin Ratio 1.5 Lipase 59 Urine Color Yellow Urine Appearance Clear Urine pH 6.5 Ur Specific [place] 1.020 Urine Protein Negative Urine Glucose (UA) Negative Urine Ketones Negative Urine Occult Blood Negative Urine Nitrate Negative Urine Bilirubin Negative Urine Urobilinogen 0.2 Ur Leukocyte Esterase Negative Urine RBC None seen Urine WBC None seen Urine Bacteria None seen Ur Culture Indicated? Cult not indicated Assessment & Plan Assessment & Plan narrative: Patient is recovering nicely following an open appendectomy this morning he did get a little dizzy when he stood up to go to the bathroom. I will keep him here overnight tonight. He had 2 doses of Zosyn preoperatively and I do not think he needs any further antibiotic treatment as he did not have an abscess or peritonitis.
[2019-11-25] MEDS: HYDROCODONE/ACET 5/325 TABLET 2 TAB PO (16:54)
[2019-11-25] MEDS: ZOLPIDEM 5 MG TABLET PO (21:27)
[2019-11-26] MEDS: KETOROLAC 30 MG/ML VIAL IV ×2 (00:17→06:04)
[2019-11-26] MEDS: FAMOTIDINE 20 MG/50 ML PIGGYBACK 200 MG IV (00:18)
--- NOTE | 2019-11-26 00:38 | PC.NURSE ---
Patient is alert and oriented. Breath sounds CTA with RA sat of 96%. HRR. Denies nausea. BT present and states he is passing flatus. Bulky dressing to RLQ of abdomen is CDI. Denies pain at present time; receiving scheduled Toradol and has ice pack to area. Voiding per urinal; denies dysuria, frequency or urgency. Able to move self in bed and walks to bathroom with SBA; steady on feet. Wearing bilateral calf SCD's. Fall risk score is low.
[2019-11-26 06:05] VITALS: BP 131/90; PULSE 78; RESP 18; TEMP 36.7; O2SAT 93
[2019-11-26] MEDS: LACTATED RINGERS 1,000 ML 100 ML IV (06:07)
[2019-11-26 08:00] VITALS: BP 137/90; PULSE 86; RESP 18; TEMP 36.9; O2SAT 94
[2019-11-26] MEDS: HYDROCODONE/ACET 5/325 TABLET 1 TAB PO (09:46)
--- NOTE | 2019-11-26 10:42 | PM.DS.1 ---
History of Present Illness History of Present Illness Chief complaint: severe stomach pain Narrative: 54-year-old white male with 1 day history of lower abdominal pain actually somewhat radiating into his back now centered in the right lower abdomen. He has had some nausea no vomiting he has had no diarrhea. He came to the emergency department last night where [place] [id number] scan was done which demonstrates acute uncomplicated appendicitis. 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 He denies diabetes heart disease or hypertension has no significant medical history but has had spine surgery in the past Discharge Providers Provider Date of admission: 11/24/19 22:12 Discharge Date: 11/26/19 Primary care physician: Geovanna Avilez MD Discharge provider: Silver Mejia MD Summary Hospital Course Discharge Diagnosis: Acute uncomplicated appendicitis Hospital Course: Patient was admitted the hospital received preoperative IV fluids and antibiotic therapy. He was taken promptly to the operating room where he underwent an appendectomy. Subsequently he did very well and was able to be discharged the morning following surgery. Tolerating a diet had a bowel movement no nausea vomiting ambulating without assistance. He'll return to the surgery Clinic in 1 week to have celestino removed he will do no heavy lifting for 3 weeks and was given a prescription for [place] as needed pain no antibiotics. His wound was uninfected at time of discharge. Status at Discharge Cognitive/behavioral status at discharge: oriented Functional status at discharge: independent ambulation Overall status at discharge: patient is back to baseline Time Spent with Patient Time spent: Greater than 30 minutes Exam Vital Signs (past 8 hours): - 11/26/19 06:05 11/26/19 08:00 Temperature 98.1 F 98.4 F Pulse Rate 78 86 Respiratory Rate 18 18 Blood Pressure 131/90 137/90 Pulse Oximetry 93 94 Oxygen Delivery Method Room Air Oxygen Flow Rate 0 Objective Labs Result Diagrams: 11/24/19 19:45 11/24/19 19:45 Discharge Plan Discharge Plan Patient Disposition: Home Discharge comment: have celestino removed in one week in the surgery clinic here Discharge orders & Medications Prescriptions: New hydrocodone-acetaminophen 5-325 mg Tablet 2 tab PO Q4-8H PRN (Reason: Pain, Severe (7-10)) 5 Days Qty: 20 RF: 0 hydrocodone-acetaminophen 5-325 mg Tablet 1 tab PO Q4HR PRN (Reason: Pain, Moderate (4-6)) 5 Days Qty: 20 RF: 0 Continued zolpidem [Ambien] 10 mg tablet 10 mg PO BEDTIME PRN (Reason: insomnia) Qty: 90 RF: 3 Follow up/Referrals: Silver Mejia MD [Physician] - Geovanna Avilez MD [Primary Care Provider] - Diet/Activity/Treatments Diet: Diet as Tolerated Activity: no heavy lifting one month Skin/Wound/Dressing Care Skin care: may shower with or with out dressing Dressing: remove in 48 hours, and leave open Visit Report/Discharge Packet Instructions: DI for an Appendectomy, DI for Prescription Opioid Use, [facility]: Wound Care, Hydrocodone/Acetaminophen (By mouth) Stand Alone Forms: Surgery Discharge Discharge Data Primary Care Provider: Geovanna Avilez Attending Provider: Silver Mejia Admit Date/Time: 11/24/19 22:12
[2019-11-26] MEDS: BACITRACIN OINT 0.9 GM PCKT 1 APPLIC TOP (11:11)
--- NOTE | 2019-11-26 11:20 | PC.NURSE ---
Addendum entered by Nan Falk R.N. 11/26/19 12:23: Pt left unit at 1220 via wheelchair with [employer]CK OPERATOR escort, unseen by this RN. Original Note: Day Shift- Per verbal order by Dr. Mejia, RLQ abd dressing changed. Incision cleansed with NS, pat dry with gauze. Incision well approximated with celestino intact. No S/S of infection. bactitracin ointment placed over incision, covered with telfa and covered with tegaderm. pt tolerated well. Pt given prescription of [place] that was given to his Linwood to bring to their pharmacy, pt agreeable. Discharge summary packet reviewed with pt, no further voiced concerns. F/U appointment made with Dr. Barajas for December 01 at 0900, pt aware. Pt will have lunch and be picked up by his at [address] pt home.
--- NOTE | 2019-11-26 12:25 | CM.DPC ---
Discussed case in Team Rounds this morning. Dr. Guevara was here in the morning, ok'd pt for d/c to home. Pt has already left after going over all d/c details with LONDON Chang.
== END 2019-11-26 12:20 | disposition home or self-care (01) ==
LOC: ED 21:50 → AC 22:12
PROVIDERS: Admitting Provider Surgery; Emergency Provider Emergency Medicine; PCP Family Medicine; Visit Provider Surgery
PROC: (CPT 44950; principal; 2019-11-25 19:00)
DX: K35.891 Other acute appendicitis without perforation, with gangrene (principal); R10.9 Unspecified abdominal pain; G47.33 Obstructive sleep apnea (adult) (pediatric); G47.00 Insomnia, unspecified; E78.5 Hyperlipidemia, unspecified
CPT/HCPCS: 44970; 36415; 71275; 74022; 74174; 80053; 81001; 83690; 84484; 85025; 87070; 87205; 93005; 93010; 94760; 96361; 96365; 96366; 96375; 99219; 99285; G0378; J0330; J1100; J1170; J1885; J2250; J2270; J2405; J2543; J2704; J3010; Q9967

== ENCOUNTER → 2019-12-02 11:43 | Outpatient (CLI) | payer OTHER, SELFPAY ==
[2019-11-26 11:17] VITALS: BMI 31.1
--- NOTE | 2019-12-02 12:50 | DI.CT.S_ITS ---
PROCEDURE: CT ABDOMEN PELVIS W CON INDICATIONS: abdominal pain sp appendectomy TECHNIQUE: After the administration of oral and intravenous contrast, 5 mm thick sections acquired from the diaphragms to the symphysis. 5 mm thick coronal and sagittal reformats were performed. For radiation dose reduction, the following was used: automated exposure control, adjustment of mA and/or kV according to patient size. COMPARISON: None. FINDINGS: Image quality: Excellent. ABDOMEN: Lung bases: Lung bases are clear. Heart size is normal. Solid organs: Liver is normal in size and enhancement. Gallbladder is within normal limits. Biliary system is non-dilated. Pancreas enhances normally. Spleen is normal in size and enhancement. No adrenal nodules. Kidneys are normal in size and enhancement, without hydronephrosis. Peritoneum and bowel: Stomach, small bowel, and colon loops are normal in caliber and wall thickness. No free fluid or air. Status post appendectomy. Diverticulosis of the descending and sigmoid colon. No evidence of acute diverticulitis. Nodes and vessels: No retroperitoneal or mesenteric adenopathy. Aorta and inferior vena cava are normal in caliber. Miscellaneous: No ventral hernias. PELVIS: Genitourinary: Bladder wall thickness is normal. Miscellaneous: No inguinal hernias or adenopathy. Bones: No suspicious bony lesions. No vertebral body compression fractures. IMPRESSION: 1. No acute process. Dictated by: Scarlett Leal M.D. on 12/02/2019 at 13:04 Approved by: Scarlett Leal M.D. on 12/02/2019 at 13:06
== END ==
PROVIDERS: PCP Family Medicine; Referring Provider Surgery; Visit Provider Surgery
DX: R10.9 Unspecified abdominal pain (principal); K57.30 Diverticulosis of large intestine without perforation or abscess without bleeding; Z98.890 Other specified postprocedural states
CPT/HCPCS: 36415; 74177; 80053; 85025; Q9967

== ENCOUNTER → 2019-12-02 17:07 | Outpatient (CLI) | payer OTHER, SELFPAY ==
[2019-11-26 11:17] VITALS: BMI 31.1
[2019-12-02 17:21] LABS: Add Manual Diff / Slide Review NO; Basophils Absolute Auto 100 /uL (0-100); Basophils Percent Auto 0.7 % (0-2); Eosinophils Absolute Auto 100 /uL (0-450); Eosinophils Percent Auto 1.2 % (2-4); Hematocrit 42.7 % (41-53); Hemoglobin 15.1 g/dL (13.5-17.5); Lymphocytes Absolute Auto 2500 /uL (1100-4500); Lymphocytes Percent Auto 32.1 % (25-40); Mean Corpuscular HGB Conc 35.4 % (30-36); Mean Corpuscular Hemoglobin 30.7 PG (26-34); Mean Corpuscular Volume 86.8 fL (80-100); Monocytes Absolute Auto 600 /uL (0-900); Monocytes Percent Auto 7.2 % (3-14); Neutrophils Absolute Auto 4500 /uL (1500-7000); Neutrophils Percent Auto 58.8 % (50-75); Platelet Count 224 X10^3/uL (150-400); Red Blood Cell Count 4.92 X10^6/uL (4.5-5.9); Red Cell Distribution Width 12.9 % (11.6-14.8); White Blood Cell Count 7.7 X10^3/uL (4.5-11.0)
[2019-12-02 17:35] LABS: Alanine Aminotransferase 39 IU/L (<50); Albumin 4.4 g/dL (3.5-5.0); Albumin Globulin Ratio 1.3 (1.0-2.8); Alkaline Phosphatase 53 U/L (38-126); Aspartate Aminotransferase 29 IU/L (17-59); BUN Creatinine Ratio 20.5 (6-22); Bilirubin Total 0.7 mg/dL (0.2-1.3); Blood Urea Nitrogen 18 mg/dL (9-20); Calcium 9.9 mg/dL (8.4-10.2); Carbon Dioxide 29 mmol/L (22-32); Chloride 102 mmol/L (98-107); Estimated Glomerular Filt Rate > 60.0 mL/min (>60); Globulin 3.3 g/dL (1.7-4.1); Glucose 101 mg/dL (70-100); HEMOLYSIS < 15 (0-50); Potassium 4.4 mmol/L (3.4-5.1); Sodium 137 mmol/L (137-145); Total Protein 7.7 g/dL (6.3-8.2)
== END ==
PROVIDERS: PCP Family Medicine; Referring Provider Family Medicine; Visit Provider Specialist
DX: K35.80 Unspecified acute appendicitis (principal)
CPT/HCPCS: 36415; 80053; 85025

== ENCOUNTER → 2020-05-08 15:09 | Outpatient (CLI) | payer OTHER, SELFPAY ==
[2019-11-26 11:17] VITALS: BMI 31.1
--- NOTE | 2020-05-08 15:10 | DI.RAD.S_ITS ---
PROCEDURE: XR CERVICAL SPINE 2V OR 3V INDICATIONS: neck pain, hx of fusion TECHNIQUE: 3 view(s) of the cervical spine were acquired. COMPARISON: None. FINDINGS: Bones: No fractures or dislocations to the T1 level. The lateral masses of C1 appear intact on the odontoid view. No suspicious bony lesions. Prior anterior fusion planing crossing from C4 through C7 noted. There is significant anterolisthesis of C7 on T1 measured at approximately 8 mm. This implies significant ligamentous laxity. . Soft tissues: No prevertebral soft tissue swelling. IMPRESSION: No acute disease. Anterior fusion plate crosses from C4 through C7. There is no evidence of device loosening or disruption. There is an unexpected finding of anterolisthesis, grade 2, by approximately 8 mm of C7 across T1. Ligamentous laxity appears significant in this area and specialist consultation is recommended given this finding. Additional stabilization may become necessary. Dictated by: Jay Sun M.D. on 05/08/2020 at 16:04 Approved by: Jay Sun M.D. on 05/08/2020 at 16:08
--- NOTE | 2020-05-08 15:10 | DI.RAD.S_ITS ---
PROCEDURE: XR THORACIC SPINE 3V INDICATIONS: upper back pain TECHNIQUE: 3 views of the thoracic spine were acquired. COMPARISON: Comparison cervical spine plain films same day reviewed.. FINDINGS: Bones: No fractures or dislocations. No suspicious bony lesions. 12 pairs of ribs are noted, and appear intact where visualized. There is mild to moderate chronic appearing degenerative disc disease along the thoracic spine. Soft tissues: No paravertebral stripe thickening. IMPRESSION: Please also refer to the report from cervical spine plain film study also obtained today which documents significant anterolisthesis of the C7 inferior endplate a crossed the superior endplate of T1. This is not demonstrated visibly on the current study due to overlap of multiple osseous margins at the cervical thoracic junction. Below the cervical thoracic junction chronic [id number] degenerative disc disease appears present and no prior compression fracture is found. Dictated by: Jay Sun M.D. on 05/08/2020 at 16:08 Approved by: Jay Sun M.D. on 05/08/2020 at 16:10
== END ==
PROVIDERS: PCP Family Medicine; Referring Provider Family Medicine; Visit Provider Family Medicine
DX: M54.6 Pain in thoracic spine (principal); M43.13 Spondylolisthesis, cervicothoracic region; M54.2 Cervicalgia; Z98.1 Arthrodesis status
CPT/HCPCS: 72040; 72072

== ENCOUNTER → 2020-05-11 08:26 | Outpatient (CLI) | payer OTHER, SELFPAY ==
[2019-11-26 11:17] VITALS: BMI 31.1
[2020-05-11 11:09] LABS: Cholesterol 239 mg/dL (140-199); HDL Cholesterol 51 mg/dL (40-60); LDL Cholesterol Calculated 152 mg/dL (<100); Triglycerides 181 mg/dL (35-150)
== END ==
PROVIDERS: PCP Family Medicine; Referring Provider Family Medicine; Visit Provider Family Medicine
DX: E78.1 Pure hyperglyceridemia (principal)
CPT/HCPCS: 36415; 80061

== ENCOUNTER → 2020-05-22 09:48 | Outpatient (CLI) | payer OTHER, SELFPAY ==
[2019-11-26 11:17] VITALS: BMI 31.1
[2020-05-23 17:55] LABS: COVID19 Sendout Not Detected (Not Detect)
== END ==
PROVIDERS: PCP Family Medicine; Visit Provider Nurse Practitioner
DX: Z11.59 Encounter for screening for other viral diseases (principal)
CPT/HCPCS: 87635

== ENCOUNTER → 2020-05-25 10:35 | Outpatient (CLI) | payer OTHER, SELFPAY ==
[2019-11-26 11:17] VITALS: BMI 31.1
--- NOTE | 2020-05-30 16:45 | PM.PFT.1 ---
Pulmonary Function Test Referral & Results Date Patient Seen: 05/25/20 Requesting provider: Ant Mg Indication: Dyspnea Results: The spirometry demonstrates an FVC of 5.67 L which is 96% of predicted. The FEV1 was measured at 4.66 L which is 103% of predicted. The FEV1/FVC ratio was 82 which is 106% of predicted. Following the administration of bronchodilator there was no appreciable change to above normal numbers. Lung volumes show an SVC of 5.30 L which is 94% of predicted. The diffusing capacity was measured at 35.45 which is 90% of predicted. The maximum voluntary ventilation was normal Interpretation: This study demonstrates normal pulmonary function
== END ==
PROVIDERS: PCP Family Medicine; Referring Provider Family Medicine; Visit Provider Internal Medicine Pulmonary Disease
DX: R06.00 Dyspnea, unspecified (principal); Z87.891 Personal history of nicotine dependence
CPT/HCPCS: 94060; 94726; 94729

== ENCOUNTER → 2020-07-11 11:40 | Outpatient (CLI) | payer OTHER, SELFPAY ==
[2020-06-15 10:22] VITALS: BMI 31.1
--- NOTE | 2020-07-11 11:44 | DI.MRI.S_ITS ---
PROCEDURE: MR CERVICAL SPINE WO CON INDICATIONS: required by neurology TECHNIQUE: Noncontrast sagittal T1 spin echo and T2 fast spin echo, sagittal STIR, foraminal oblique sagittal T2 fast spin echo, and axial gradient echo or T2 fast spin echo through the cervical spine. COMPARISON: [facility], CR, XR CERVICAL SPINE 2V OR 3V, 05/08/2020, 15:08. FINDINGS: Image quality: Excellent. Alignment and Curvature: There is mild, approximately 5 millimeters of C7-T1 anterolisthesis. There is trace C2-C3 anterolisthesis. Bones: Postsurgical changes compatible with C4-C7 ACDF. Mild reactive endplate changes noted adjacent to the C7-T1 disc. Spinal Cord: Visualized spinal cord has normal size and signal. No cerebellar tonsillar herniation. Paraspinous Soft Tissues: No paravertebral masses. Prevertebral soft tissues are normal in thickness. C2-C3: Loss of disc signal. Mild, diffuse disc bulge. No central stenosis. Mild right moderate left facet hypertrophy. Mild bilateral neural foraminal narrowing. No neural compression. C3-C4: Loss of disc signal. Mild, diffuse disc bulge. Mild bilateral facet hypertrophy. No central stenosis. Mild right uncovertebral joint hypertrophy. Mild right neural foraminal narrowing. No neural compression. C4-C5: Status post fusion. No central stenosis. No neural foraminal narrowing. No neural compression. C5-C6: Status post fusion. No central stenosis. No neural foraminal narrowing. No neural compression. C6-C7: Status post fusion. No central stenosis. No neural foraminal narrowing. No neural compression. C7-T1: Loss of disc signal and height. Moderate, diffuse disc bulge. Moderate bilateral facet hypertrophy. Moderate narrowing of the central canal. Severe right and moderate left neural foraminal narrowing with compression of the exiting right C8 nerve root. IMPRESSION: 1. Status post C4-C7 ACDF. 2. Multilevel degenerative disc disease. 3. Multilevel facet arthropathy. 4. Moderate C7-T1 central canal narrowing. 5. Severe right moderate left C7-T1 neural foraminal narrowing. Mild bilateral C2-C3 neural foraminal narrowing. Mild right C3-C4 neural foraminal narrowing. 6. Compression of the exiting right C8 nerve root secondary to right C7-T1 neural foraminal narrowing. Dictated by: Nohemi Norris MD, PhD on 07/12/2020 at 9:46 Approved by: Nohemi Norris MD, PhD on 07/12/2020 at 10:31
== END ==
PROVIDERS: PCP Family Medicine; Referring Provider Family Medicine; Visit Provider Family Medicine
DX: M50.30 Other cervical disc degeneration, unspecified cervical region (principal); M47.892 Other spondylosis, cervical region; M48.03 Spinal stenosis, cervicothoracic region; G54.2 Cervical root disorders, not elsewhere classified; Z98.1 Arthrodesis status
CPT/HCPCS: 72141

== ENCOUNTER → 2020-09-12 13:53 | Outpatient (CLI) | payer OTHER, SELFPAY ==
[2020-06-15 10:22] VITALS: BMI 31.1
--- NOTE | 2020-09-12 | DI.RAD.S_ITS ---
PROCEDURE: XR CERVICAL SPINE 2V OR 3V INDICATIONS: CERVICALGIA TECHNIQUE: 3 view(s) of the cervical spine were acquired. COMPARISON: [facility], CR, XR CERVICAL SPINE 2V OR 3V, 05/08/2020, 15:08. FINDINGS: Bones: No fracture. Expected postoperative alignment of C4-C7 ACDF and chronic osseous fusion of the vertebral bodies. Hardware appears intact. Moderate narrowing of the C7-T1 disc space. Grade 2 anterolisthesis of C7 on T2. Multilevel degenerative endplate sclerosis and spurring. Diffuse facet arthropathy. There is approximately 3 mm of anterolisthesis of C2 on C3 on the flexion and neutral views, which appears to reduce completely on the extension view Soft tissues: No prevertebral soft tissue swelling. IMPRESSION: 3 mm of anterolisthesis of C2 on C3, which appears to reduce completely on the extension view suggesting instability. Additional degenerative and postsurgical sequela as above Dictated by: Linwood Coronel M.D. on 09/12/2020 at 15:25 Approved by: Linwood Coronel M.D. on 09/12/2020 at 15:29
== END ==
PROVIDERS: PCP Family Medicine; Referring Provider Neurological Surgery; Visit Provider Neurological Surgery
DX: M54.2 Cervicalgia (principal); M43.12 Spondylolisthesis, cervical region; Z98.1 Arthrodesis status
CPT/HCPCS: 72040

== ENCOUNTER → 2020-09-13 07:45 | Outpatient (CLI) | payer OTHER, SELFPAY ==
[2020-06-15 10:22] VITALS: BMI 31.1
--- NOTE | 2020-09-13 | DI.CT.S_ITS ---
PROCEDURE: CT CERVICAL SPINE WO CON INDICATIONS: Arthrodesis status,Cervicalgia TECHNIQUE: Noncontrast 3 mm thick sections acquired from the skull base to the T4 level. Sagittal and coronal reformats were then constructed. For radiation dose reduction, the following was used: automated exposure control, adjustment of mA and/or kV according to patient size. COMPARISON: [facility], MR, MR CERVICAL SPINE WO CON, 07/11/2020, 11:51. FINDINGS: Image quality: Excellent. Bones: Remote ACDF at C4 through C7 using anterior plate and screw fixation and interbody graft material. The interbody fusion at C5 through C7 is mature. There is lack of interbody fusion at C3-C4. There is no evidence of hardware failure or loosening. There is degenerative anterolisthesis of C7 on T1 measuring 5 mm. There is trace degenerative anterolisthesis of C3 on C4 and of C2 on C3. No fractures or dislocations. Visualized superior ribs are intact. Soft tissues: Prevertebral soft tissues are normal in thickness. No paravertebral hematomas. No apical pneumothoraces. C2-C3: No canal stenosis. Mild right and moderate left facet arthropathy. Mild left foraminal narrowing. C3-C4: Mild disc bulge. No canal stenosis. Mild bilateral facet hypertrophy. Mild left foraminal narrowing. C4-C5: Fused. Left paracentral osteophyte results in mild narrowing of the left neno canal. No significant foraminal narrowing. C5-C6: Fused. No canal stenosis or foraminal stenosis. C6-C7: Fused. No canal stenosis or foraminal stenosis. C7-T1: Degenerative anterolisthesis of C7 on T1. Associated central canal stenosis, which is underestimated on the axial images. Bilateral facet hypertrophy. Severe right foraminal narrowing moderate left foraminal narrowing. IMPRESSION: 1. Remote ACDF and interbody fusion at C4 through C7. No evidence of hardware failure or loosening. There is mature interbody fusion at C5 through C7. 2. Findings are stable relative to the recent MRI. There is canal stenosis at C7-T1. There is multilevel facet hypertrophy. There is multilevel foraminal narrowing as described above. Findings include severe right foraminal narrowing and moderate left foraminal narrowing at C7-T1. Dictated by: Adrien Etienne M.D. on 09/13/2020 at 9:59 Approved by: Adrien Etienne M.D. on 09/13/2020 at 10:16
== END ==
PROVIDERS: PCP Family Medicine; Referring Provider Family Medicine; Visit Provider Nurse Practitioner
DX: M54.2 Cervicalgia (principal); Z98.1 Arthrodesis status; M48.03 Spinal stenosis, cervicothoracic region
CPT/HCPCS: 72125

== ENCOUNTER → 2021-05-16 09:32 | Outpatient (CLI) | payer OTHER, SELFPAY ==
[2020-06-15 10:22] VITALS: BMI 31.1
[2021-05-16 13:44] LABS: Cholesterol 218 mg/dL (140-199); HDL Cholesterol 54 mg/dL (40-60); LDL Cholesterol Calculated 141 mg/dL (<100); Triglycerides 113 mg/dL (35-150)
== END ==
PROVIDERS: PCP Family Medicine; Referring Provider Family Medicine; Visit Provider Family Medicine
DX: E78.1 Pure hyperglyceridemia (principal)
CPT/HCPCS: 36415; 80061

== ENCOUNTER → 2021-06-20 10:23 | Outpatient (CLI) | payer OTHER, SELFPAY ==
[2020-06-15 10:22] VITALS: BMI 31.1
[2021-06-20 11:19] LABS: COVID19 -Nasal RAPID Negative (Negative)
== END ==
PROVIDERS: PCP Family Medicine; Referring Provider Specialist; Visit Provider Specialist
DX: Z20.822 Contact with and (suspected) exposure to COVID-19 (principal)
CPT/HCPCS: 87635; C9803

== ENCOUNTER 2021-06-21 08:36 | Day surgery (SDC) | payer OTHER, SELFPAY ==
[2020-06-15 10:22] VITALS: BMI 31.1
[2021-06-21] VITALS (7 sets, daily range): BP systolic 109–122; BP diastolic 66–74; PULSE 65–71; RESP 10–16; TEMP 36.4–36.8; O2SAT 93–98; BMI 28.8
--- NOTE | 2021-06-21 | PATH_ITS ---
[facility] Accession Number: [id number] . 01 Material submitted: . PART A: colon - 45CM COLON POLYP PART B: colon - 25CM COLON POLYP . 02 Diagnosis: A. 45 cm Colon Polyp: Portions of serrated lesion x 2, favor sessile serrated adenoma. Superficial portions of colorectal mucosa x2 with no significant histomorphologic abnormality. . B. 25 cm Colon Polyp: Serrated lesion, cannot completely exclude sessile serrated adenoma. MRV 06/25/2021 1319 Local . 02 Electronically signed: . Iraida Sherwood MD, Pathologist NPI- [id number] . 01 Gross description: . Part A: 45CM COLON POLYP: Received in formalin are multiple fragment(s) of lloyd, soft tissue measuring 1.4 x 0.5 x 0.2 cm in aggregate submitted entirely in 1 cassette(s) Part B: 25CM COLON POLYP: Received in formalin are 2 fragment(s) of lloyd, soft tissue measuring 0.9 x 0.5 x 0.4 cm to 0.3 x 0.1 x 0.1 cm submitted entirely in 1 cassette(s) /JOSE 06/22/2021 0424 Local . 02 Pathologist provided ICD-10: K62.5, K63.5 . 02 CPT . 684788, [id number] Performed at: 01 [facility] [address] [place] [address], [place], [place] [id number] MD Garcia Ruiz MD Phone: [phone] Performed at: 02 [facility] [place] [address] [place], [place] [id number] MD Radha Lewis MD Phone: [phone]
[2021-06-21] MEDS: LACTATED RINGERS 1,000 ML 200 ML IV (09:44)
--- NOTE | 2021-06-21 10:18 | PM.PREOP ---
Pre-operative Note COVID-19 COVID-19 status: Negative Result date/Date tested (Pos, Neg/Pending): 06/20/21 Interval Note History & Physical reviewed/Exam performed by Physician: Yes Changes to H&P: No ASA Class (for procedural sedation): I
[2021-06-21] MEDS: fentaNYL 250 MCG/5 ML INJ IV (11:05)
[2021-06-21] MEDS: MIDAZOLAM 5 MG/5 ML VIAL IV (11:08)
--- NOTE | 2021-06-21 11:17 | PM.OP.COLON ---
Operative Date/Time/Diagnoses Date of procedure: 06/21/21 Time of procedure: 11:17 Pre-op diagnosis: Screening for colon cancer. Rectal bleeding. Last exam 4 years ago. Post-op diagnosis: same (Polyps. Internal hemorrhoids.) Procedure & Clinicians Study performed: Colonoscopy with cold biopsy and hot snare polypectomy. Anoscopy with hemorrhoidal banding of 2 columns of hemorrhoids. Same procedure as scheduled: Yes Indications: Rectal bleeding Surgeon: Lowell Smith Procedure Notes SCOAP/Timeout: Performed Procedure in detail: The patient was placed in the left lateral decubitus position and underwent IV sedation directed by the surgeon consisting of fentanyl and Versed. Digital exam was unremarkable. I could only feel small portion of his prostate. The scope was inserted and advanced through the rectum into the sigmoid, descending, transverse, and ascending colon. Rare diverticulum was seen. Pressure was applied to make our way into the cecum. The cecum was reached identified by the ileocecal valve and the appendiceal opening. The ileocecal valve was successfully cannulated. The terminal ileum was normal in appearance. The scope was gradually brought out. One flat lesion that may just have been in irregularity was seen at 45 cm and was biopsied and appeared to be completely removed. One obvious Polyp was found at 25 cm from the anal verge. It was snared and the edges of the snare psych cauterized. The scope ultimately was retroflexed in the rectum. The appearance was unremarkable but when I brought the scope scope slowly through the anus it appeared that the patient had a hemorrhoids. The scope was removed and the patient tolerated the procedure well. Patient was given additional sedation in an anoscope inserted. Circumferential exam revealed least 2 large columns. I a applied rubber bands to both of these. They were located in the right lateral and left posterior lateral locations. Scope withdrawal time: 8 minutes(18 total) Sedation minutes: 43 Specimen(s): other (Polyps) Complications: none Post-procedure Recommendations: Colonoscopy in 5 years Follow up: weeks (2) Disposition: PACU
== END 2021-06-21 12:15 | disposition home or self-care (01) ==
PROVIDERS: PCP Family Medicine; Referring Provider Specialist; Visit Provider Specialist
PROC: 0DJD8ZZ Inspection of Lower Intestinal Tract, Via Natural or Artificial Opening Endoscopic (ICD-10-PCS; CPT 45378; principal; 2021-06-21 10:45)
DX: K62.5 Hemorrhage of anus and rectum (principal); K64.8 Other hemorrhoids; D12.6 Benign neoplasm of colon, unspecified
CPT/HCPCS: 45385; 45380; 46221; 99152; 99153; J2250; J3010

== ENCOUNTER → 2022-02-12 12:36 | Outpatient (CLI) | payer OTHER, SELFPAY ==
[2021-11-16 08:09] VITALS: BMI 31.1
--- NOTE | 2022-02-12 12:38 | DI.RAD.S_ITS ---
PROCEDURE: XR SKULL<4V INDICATIONS: neck pain with headache TECHNIQUE: 3 view(s) of the skull acquired. COMPARISON: None. FINDINGS: Bones: No fractures. No suspicious bony lesions. Visualized sinuses appear clear. Soft tissues: No soft tissue calcifications. No suspicious soft tissue densities. IMPRESSION: No visualized acute fracture or dislocation. However, if clinical concern and/or pain persist, short interval imaging followup in 7-10 days is recommended, as occult injury cannot be definitively excluded. Dictated by: Macie Gastelum M.D. on 02/12/2022 at 15:08 Approved by: Macie Gastelum M.D. on 02/12/2022 at 15:08
--- NOTE | 2022-02-12 12:38 | DI.RAD.S_ITS ---
PROCEDURE: XR CERVICAL SPINE 2V OR 3V INDICATIONS: neck pain with headache TECHNIQUE: 3 view(s) of the cervical spine were acquired. COMPARISON: [facility], , XR CERVICAL SPINE 2V OR 3V, 09/12/2020, 13:58. FINDINGS: Bones: No fractures or dislocations to the T1 level. Prior ACDF C4-C5, C5-C6 and C6-C7 with hardware in expected unchanged positions as well as the intervertebral bone grafts. 5 mm spondylolisthesis C7-T1 where there is severe disc narrowing. Moderate multilevel mid and lower cervical spine facet joint arthropathy. The lateral masses of C1 appear intact on the odontoid view. No suspicious bony lesions. Soft tissues: No prevertebral soft tissue swelling. IMPRESSION: 1. Stable ACDF C4-C5 through the C6-C7 level. 2. Grade 1 spondylolisthesis C7-T1 where there is severe disc degeneration. 3. Moderate multilevel mid and lower cervical spine facet joint arthropathy and uncovertebral hypertrophy. Dictated by: Galen Lynn RR Interpreted: Braulio Reed MD on 02/12/2022 at 13:16 Transcribed by: LIBBY on 02/12/2022 at 13:18 Approved by: Braulio Reed M.D. on 02/12/2022 at 15:49
== END ==
PROVIDERS: PCP Family Medicine; Referring Provider Family Medicine; Visit Provider Family Medicine
DX: M54.2 Cervicalgia (principal); R51.9 Headache, unspecified; M43.12 Spondylolisthesis, cervical region; M47.812 Spondylosis without myelopathy or radiculopathy, cervical region
CPT/HCPCS: 70250; 72040

== ENCOUNTER → 2022-04-23 15:13 | Outpatient (CLI) | payer OTHER, SELFPAY ==
[2021-11-16 08:09] VITALS: BMI 31.1
--- NOTE | 2022-04-23 15:15 | DI.MRI.S_ITS ---
PROCEDURE: MR CERVICAL SPINE WO CON INDICATIONS: Spinal stenosis, cervical region TECHNIQUE: Noncontrast sagittal T1 spin echo and T2 fast spin echo, sagittal STIR, foraminal oblique sagittal T2 fast spin echo, and axial gradient echo or T2 fast spin echo through the cervical spine. COMPARISON: [facility], CT, CT CERVICAL SPINE WO CON, 09/13/2020, 8:07. [facility], CR, XR CERVICAL SPINE 2V OR 3V, 02/12/2022, 12:30. [facility], CR, XR SKULL<4V, 02/12/2022, 12:30. [facility], MR, MR CERVICAL SPINE WO CON, 07/11/2020, 11:51. FINDINGS: Image quality: Excellent. Alignment and Curvature: There is normal bony alignment. Bone Marrow: Marrow demonstrates normal overall signal. Spinal Cord: Visualized spinal cord has normal size and signal. No cerebellar tonsillar herniation. Paraspinous Soft Tissues: No paravertebral masses. Prevertebral soft tissues are normal in thickness. Extensive postoperative change can be seen anteriorly C4 through C7. Corpectomy with strut graft can be seen involving C5 and C6. C2-C3: The disc height is well-preserved. Loss of disc signal is seen at this level. Moderate generalized disc bulge is seen. There is moderate right-sided and moderate to prominent left-sided facet hypertrophy. There is mild left-sided and no significant right-sided neural foraminal narrowing. No central canal narrowing is seen. No significant change from the prior. C3-C4: The disc height is well-preserved. Loss of disc signal is seen at this level. Moderate generalized disc osteophyte complex is seen. Moderate facet joint hypertrophy is seen. There is mild left-sided and no significant right-sided neural foraminal narrowing. Mild central canal narrowing is seen. When comparison is made with the prior images, these findings are similar. C4-C5: No significant neural foraminal or central canal narrowing can be seen. C5-C6: No neural foraminal narrowing or significant central canal narrowing can be seen. C6-C7: No significant neural foraminal or central canal narrowing can be seen. C7-T1: Moderate to severe loss of disc height and disc signal can be seen. Mac VIII complex there is a central disc extrusion seen, with superior migration of disc material, as on series 4, image 37. Moderate facet joint hypertrophy is seen. There is moderate to severe right-sided neural foraminal narrowing and there is moderate left-sided neural foraminal narrowing. Mild to moderate central canal narrowing is seen. When comparison is made with the prior images, these findings are similar. IMPRESSION: Extensive postoperative hardware. Multiple levels of degenerative change are seen, which are similar to 2020. Dictated by: Doug Eric M.D. on 04/23/2022 at 15:39 Approved by: Doug rEic M.D. on 04/23/2022 at 15:44
== END ==
PROVIDERS: PCP Family Medicine; Referring Provider Physical Medicine & Rehabilitation; Visit Provider Physical Medicine & Rehabilitation
DX: M47.812 Spondylosis without myelopathy or radiculopathy, cervical region (principal); M48.02 Spinal stenosis, cervical region
CPT/HCPCS: 72141

== ENCOUNTER → 2022-09-09 13:34 | Outpatient (CLI) | payer OTHER, SELFPAY ==
[2021-11-16 08:09] VITALS: BMI 31.1
--- NOTE | 2022-09-09 13:37 | DI.RAD.S_ITS ---
PROCEDURE: XR ANKLE RT MIN 3V INDICATIONS: Right foot ankle pain TECHNIQUE: 3 views of the ankle were acquired. COMPARISON: [facility], CR, XR ANKLE RT MIN 3V, 10/21/2018, 10:19. FINDINGS: Bones: No fractures or dislocations. Ankle mortise is normally aligned. No suspicious bony lesions. Soft tissues: No tibiotalar joint effusion. Achilles tendon appears normal. IMPRESSION: Mild degenerative change. Dictated by: Steve Sofia M.D. on 09/09/2022 at 15:09 Approved by: Steve Sofia M.D. on 09/09/2022 at 15:10
--- NOTE | 2022-09-09 13:37 | DI.RAD.S_ITS ---
PROCEDURE: XR FOOT RT MIN 3V INDICATIONS: Right foot ankle pain TECHNIQUE: 3 views of the foot were acquired. COMPARISON: [facility], CR, XR ANKLE 3 VIEWS WEIGHT BEARING LEFT, 07/27/2020, 14:55. [facility], CR, XR ANKLE RT MIN 3V, 09/09/2022, 13:43. FINDINGS: Bones: No fractures or dislocations. Mild degenerative change. No suspicious bony lesions. Soft tissues: No tibiotalar joint effusion. Achilles tendon appears normal. IMPRESSION: No fracture. Mild degenerative change. Dictated by: Steve Sofia M.D. on 09/09/2022 at 15:07 Approved by: Steve Sofia M.D. on 09/09/2022 at 15:09
== END ==
PROVIDERS: PCP Family Medicine; Referring Provider Nurse Practitioner Family; Visit Provider Nurse Practitioner Family
DX: M25.571 Pain in right ankle and joints of right foot (principal); M79.671 Pain in right foot
CPT/HCPCS: 73610; 73630

== ENCOUNTER → 2022-10-14 15:39 | Outpatient (CLI) | payer OTHER, SELFPAY ==
[2021-11-16 08:09] VITALS: BMI 31.1
--- NOTE | 2022-10-14 | DI.MRI.S_ITS ---
PROCEDURE: MR ANKLE RT WO CON INDICATIONS: Posterior tibial tendinitis, right leg TECHNIQUE: Noncontrast sagittal T1 spin echo and T2 fast spin echo with fat saturation, axial proton density fast spin echo and T2 fast spin echo with fat saturation, coronal T1 spin echo and T2 fast spin echo with fat saturation through the ankle/hindfoot. COMPARISON: [facility], MR, MR ANKLE RT WO CON, 05/21/2019, 16:43. FINDINGS: Image quality: Excellent. Bones and joints: No bone marrow contusions or fractures. No hindfoot coalitions. No osteochondral injuries of the talar dome. No pathologic joint effusions. Medial structures: The posterior tibialis is mildly thickened. The flexor digitorum longus, and flexor hallucis longus tendons are intact. Moderate amount of fluid distending flexor tendon sheath is seen. The posterior tibial neurovascular bundle appears normal within the tarsal tunnel, without extrinsic mass effect. The deep and superficial layers of deltoid ligament is thickened. The spring ligament complex is also thickened. Lateral structures: The anterior talofibular, calcaneofibular, and posterior talofibular ligaments appear intact. More superiorly, the anterior and posterior tibiofibular ligaments appear intact, as is the intermalleolar ligament. The tibiofibular syndesmosis is normal in width at 2 mm or less. The peroneus longus and brevis tendons demonstrate normal location and morphology. Adjacent bony peroneal tubercle and retrotrochlear prominence are normal in size. The sinus tarsi demonstrates normal fatty signal, without edema, fibrosis, or cyst formation. Visualized sinus tarsi components (cervical ligament, interosseous talocalcaneal ligament, roots of the inferior extensor retinaculum) appear normal. The calcaneonavicular and calcaneocuboid components of the bifurcate ligament appear intact. The dorsal calcaneocuboid ligament appears intact. Anterior structures: The tibialis anterior, extensor hallucis longus, and extensor digitorum longus tendons appear intact. The dorsal talonavicular ligament appears intact. Posterior and plantar structures: Achilles tendon is intact. Medial and lateral bands of the plantar fascia are of normal thickness. No abductor digiti quinti muscle atrophy to suggest Thomas neuropathy. IMPRESSION: 1. Posterior tibialis tendinosis at the level of talonavicular joint. Low-grade tenosynovitis involving flexor tendons. 2. Low-grade medial ankle ligament sprain. 3. No marrow edema. No fracture or dislocation. No osteochondral injuries of talar dome. Dictated by: Braulio Reed M.D. on 10/14/2022 at 16:40 Approved by: Braulio Reed M.D. on 10/14/2022 at 16:42
== END ==
PROVIDERS: PCP Family Medicine; Referring Provider Podiatrist; Visit Provider Podiatrist
DX: M76.821 Posterior tibial tendinitis, right leg (principal); M65.871 Other synovitis and tenosynovitis, right ankle and foot; S93.491A Sprain of other ligament of right ankle, initial encounter
CPT/HCPCS: 73721

== ENCOUNTER 2022-11-02 13:09 | Emergency (ER) | payer OTHER, SELFPAY ==
[2021-11-16 08:09] VITALS: BMI 31.1
[2022-11-02] VITALS (22 sets, daily range): BP systolic 102–181; BP diastolic 55–105; PULSE 75–103; RESP 14–22; TEMP 37.2; O2SAT 92–100; BMI 29.8
[2022-11-02] MEDS: TET,DIPH,PERTUSS(ACELL),VAC/PF 0.5 ML SYRINGE IM (13:43)
--- NOTE | 2022-11-02 14:00 | ED_ITS ---
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 He said it bled quite a bit initially but he is able to get pressure on it and feels he was able to get controlled. He states that this was a new blade that he had just put in the utility knife. 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 He says he was making the last cut necessary when this occurred. He is concerned that he has a deep cut and came in for further evaluation possible sutures states his tetanus is not up-to-date. Related Data Previous Rx's Medication Instructions Recorded gemfibrozil 600 mg tablet 600 mg PO BID #180 tabs 03/29/22 zolpidem 10 mg tablet (Ambien) 10 mg PO BEDTIME insomnia #90 tabs 10/14/22 Allergies Allergy/AdvReac Type Severity Reaction Status Date / Time No Known Drug Allergies Allergy Verified 09/09/22 12:52 Patient History <Lima Robles PA-C - Last Filed: 11/02/22 16:42> Medical History Acute appendicitis Genital herpes Hyperlipidemia Insomnia Small intestinal bacterial overgrowth Surgical History H/O hand surgery H/O Spinal surgery Hx of appendectomy Hx of shoulder surgery Family History Father Myocardial infarction Mother Ovarian cancer Social History marital status: household members: spouse housing: house education level: college occupational status: employed Smoking Status: Former smoker second hand exposure: No alcohol intake: current substance use type: does not use Smoking Status: Former smoker alcohol intake frequency: holidays/special occasions only Substance Use Type: does not use Exam <Lima Robles PA-C - Last Filed: 11/02/22 16:42> Narrative Exam Narrative: GENERAL: [57] year old patient appears stated age. Well-developed patient, in mild distress. HEAD: Atraumatic. Normocephalic. EYES: Pupils equal round and reactive. Extraocular motions intact. No scleral icterus. No injection or drainage. ENT: Nose without bleeding, purulent drainage. Airway patent. NECK: Trachea midline. Non tender CARDIOVASCULAR: Regular rate and rhythm without murmurs, gallops, or rubs. RESPIRATORY: Clear to auscultation. Breath sounds equal bilaterally. No wheezes, rales, or rhonchi. GASTROINTESTINAL: Abdomen soft, non-tender, nondistended. EXTREMITIES: There is an approximately 5 cm long laceration on the medial aspect of the palmar base of the left hand. The laceration is a deeper for a 2 cm section, full-thickness bleeding is controlled but any manipulation re- initiate bleeding, the remainder of the laceration traveling medially and proximally towards the medial wrist is very superficial. Sensation is intact, strength is intact of the affected digits with flexion and extension, flexion- extension at the wrist are intact with passive and active ROM. Patient does endorse a burning-type pain in his hand at the site of injury moves prominently with any palpation or manipulation of the superficial section of the laceration. No edema or joint tenderness. NEURO: AOx3. SKIN: No rash or erythema of visible areas Initial Vital Signs Initial Vital Signs: Vital Signs Temperature 99 F 11/02/22 13:26 Pulse Rate 103 H 11/02/22 13:26 Respiratory Rate 16 11/02/22 13:26 Blood Pressure 141/78 H 11/02/22 13:26 <Scarlett Velasco DO - Last Filed: 11/03/22 17:22> Initial Vital Signs Initial Vital Signs: Vital Signs Temperature 99 F 11/02/22 13:26 Pulse Rate 103 H 11/02/22 13:26 Respiratory Rate 16 11/02/22 13:26 Blood Pressure 141/78 H 11/02/22 13:26 Procedures <Lima Robles PA-C - Last Filed: 11/02/22 16:42> Laceration Repair Laceration 1: Time of procedure: 16:00 Site: hand Side (If applicable): left Size (cm): 2 Description: linear and clean Depth: simple, single layer Local Anesthetic: lidocaine 1% (with epinephrine) Amount of anesthesia used (mL): 3 Pre-repair: wound explored and irrigated extensively (400mL, cleansed with betadine) Skin layer closed with: nylon Skin layer suture size: 5-0 Number of sutures: 5 Technique: simple, interrupted Course <Lima Robles PA-C - Last Filed: 11/02/22 16:42> Course Course Narrative: Patient did have a vagal episode after examining his hand unclear if this was from the sight of blood or pain related to moving his hand. Was pale and unresponsive for about 45 seconds with some snoring respirations and possible bradycardia on the pulse ox. Patient's LOC did rapidly improve, placed on the monitor, IV obtained and labs including caridac CMP CBC and POC BGL checked, small sips of apple juice provided as pt hadn't eaten yet today. BGL 92. Pt declined chest XR. Patient reports no history of similar but has never been conscious for a procedure before. Notably hypotensive to 91 systolic 10 minutes after the episode fluid bolus is provided with continuous cardiac monitoring. 1445 Orders Ordered: Discontinued Medications Diphtheria/Tetanus/Acell Pertussis (Tet,Diph,Pertuss(Acell),Vac/Pf 0.5 Ml Syringe) 0.5 ml IM .ONCE ONE Stop: 11/02/22 13:39 Last Admin: 11/02/22 13:43 Dose: 0.5 ml Documented By: XI Sodium Chloride (Normal Saline 0.9%) 1,000 mls @ 1,000 mls/hr IV BOLUS ONE Stop: 11/02/22 15:52 Last Infusion: 11/02/22 15:35 Dose: 0 mls/hr Documented By: Admin: 11/02/22 14:55 Dose: 1,000 mls/hr Documented By: CALEB Lidocaine/Epinephrine (Lidocaine 1% W/Epi) 4 ml SUBCUT NOW ONE Stop: 11/02/22 14:53 Last Admin: 11/02/22 15:18 Dose: 4 ml Documented By: CALEB Ondansetron HCl (Ondansetron 4 Mg Odt) 4 mg SL NOW ONE Stop: 11/02/22 14:42 Last Admin: 11/02/22 15:16 Dose: 4 mg Documented By: CALEB Vital Signs Vital signs: Vital Signs - 8 hr 11/02/22 13:26 Temperature 99 F Pulse Rate 103 H Respiratory Rate 16 Blood Pressure 141/78 H <Scarlett Velasco DO - Last Filed: 11/03/22 17:22> Orders Ordered: Discontinued Medications Diphtheria/Tetanus/Acell Pertussis (Tet,Diph,Pertuss(Acell),Vac/Pf 0.5 Ml Syringe) 0.5 ml IM .ONCE ONE Stop: 11/02/22 13:39 Last Admin: 11/02/22 13:43 Dose: 0.5 ml Documented By: XI Sodium Chloride (Normal Saline 0.9%) 1,000 mls @ 1,000 mls/hr IV BOLUS ONE Stop: 11/02/22 15:52 Last Infusion: 11/02/22 15:35 Dose: 0 mls/hr Documented By: Admin: 11/02/22 14:55 Dose: 1,000 mls/hr Documented By: CALEB Lidocaine/Epinephrine (Lidocaine 1% W/Epi) 4 ml SUBCUT NOW ONE Stop: 11/02/22 14:53 Last Admin: 11/02/22 15:18 Dose: 4 ml Documented By: CALEB Ondansetron HCl (Ondansetron 4 Mg Odt) 4 mg SL NOW ONE Stop: 11/02/22 14:42 Last Admin: 11/02/22 15:16 Dose: 4 mg Documented By: CALEB Vital Signs Vital signs: Vital Signs - 8 hr 11/02/22 13:26 Temperature 99 F Pulse Rate 103 H Respiratory Rate 16 Blood Pressure 141/78 H MDM - Wound/Laceration <Lima Robles PA-C - Last Filed: 11/02/22 16:42> Medical Records Attestation: I reviewed the patient's medical records. Lab Data Attestation: I reviewed the patient's lab results. 11/02/22 14:50 11/02/22 14:50 Labs: Lab Results 11/02/22 11/02/22 11/02/22 Range/Units 14:50 14:50 14:50 WBC 9.4 (4.5-11.0) X10^3/uL RBC 5.09 (4.5-5.9) X10^6/uL Hgb 15.8 (13.5-17.5) g/dL Hct 44.4 (41-53) % MCV 87.2 (80-100) fL MCH 31.0 (26-34) PG MCHC 35.5 (30-36) % RDW 12.7 (11.6-14.8) % Plt Count 260 (150-400) X10^3/uL Neut % (Auto) 51.0 (50-75) % Lymph % (Auto) 40.1 H (25-40) % Rapides % (Auto) 7.0 (3-14) % Eos % (Auto) 1.1 L (2-4) % Baso % (Auto) 0.8 (0-2) % Neut # (Auto) 4800 (5539-5218) /uL Lymph # (Auto) 3800 (8893-7071) /uL [place] # (Auto) 700 (0-900) /uL Eos # (Auto) 100 (0-450) /uL Baso # (Auto) 100 (0-100) /uL Sodium 139 (137-145) mmol/L Potassium 4.0 (3.4-5.1) mmol/L Chloride 105 (98-107) mmol/L Carbon Dioxide 23 (22-32) mmol/L BUN 18 (9-20) mg/dL Creatinine 0.98 (0.66-1.25) mg/dL Estimated GFR > 60 (>60) mL/min BUN/Creatinine Ratio 18.4 (6-22) Glucose 95 (70-100) mg/dL Calcium 10.1 (8.4-10.2) mg/dL Total Bilirubin 1.0 (0.2-1.3) mg/dL AST 33 (17-59) IU/L ALT 41 (<50) IU/L Alkaline Phosphatase 61 (38-126) U/L Total Creatine Kinase 62 (55-170) U/L CK-MB (CK-2) TNP CK-MB (CK-2) Rel Index TNP Troponin I < 0.012 (0.01-0.034) ng/mL Total Protein 7.9 (6.3-8.2) g/dL Albumin 4.9 (3.5-5.0) g/dL Globulin 3.0 (1.7-4.1) g/dL Albumin/Globulin Ratio 1.6 (1.0-2.8) Imaging Data Extremity x-ray #1: Radiologist's Impression: [address] [id number] ReportSigned Patient: Lazara Perez#: [id number]: 1965Acct:[id number]/Sex: 57 / MDate of Service: 11/02/22Loc: EDAccession Number: [id number]? ? Procedure: XR hand LT min 3V Ordering Provider: Lima Robles P.A-C PROCEDURE:? XR HAND LT MIN 3V ? INDICATIONS:? laceration medial palm base ? TECHNIQUE:? 3 views of the hand(s) acquired.? ? COMPARISON:? None. ? FINDINGS:? ? Bones:? No fractures or dislocations.? Carpal bones are normally aligned.? No suspicious bony lesions.? Age-appropriate bony degenerative changes are seen.? ? Soft tissues:? Soft tissue swelling is seen.? No radiopaque foreign bodies are seen.? ? ? IMPRESSION:? No radiopaque foreign bodies are seen. ? Soft tissue swelling can be seen. ? No focal bony abnormality is seen.? ? ? Dictated by: Doug Eric M.D. on 11/02/2022 at 15:07? ?? Approved by: Doug Eric M.D. on 11/02/2022 at 15:08?? ECG Data Attestation: I personally reviewed and interpreted this ECG as follows: Interpretation: Sinus rhythm heart rate [address] changes noted. T-wave inversions in lead 3 and V1 otherwise normal EKG. EKG also reviewed by attending Dr Velasco at 15:05 [facility] Narrative Medical decision making narrative: 57-year-old male with no significant medical history presents with concern for laceration to his left palm sustained from a utility knife today while working with [employer] at home. Patient did have a vagal episode after initially examining the wound. He recovered from this well ultimately but did receive a fluid bolus as he was hypotensive for 5-10 minutes after the episode with a blood pressure in the low 90s systolic. EKG basic labs and troponin all returned unremarkable. Most suspicious that his episode was consistent with vagal reaction based on his symptoms, the duration, no history of similar and his unremarkable labs. After allowing the patient some time to recover, wound was repaired without further incident as above in procedures. Patient was placed in a soft brace given the location of the wound and is encouraged not to bend his wrist and use his hands as much until he gets his stitches out. Patient's tetanus was updated today in the emergency department. Follow-up with PCP, return precautions provided, follow-up plan discussed, all questions answered. <Scarlett Velasco, DO - Last Filed: 11/03/22 17:22> Lab Data Labs: Lab Results 11/02/22 11/02/22 11/02/22 Range/Units 14:50 14:50 14:50 WBC 9.4 (4.5-11.0) X10^3/uL RBC 5.09 (4.5-5.9) X10^6/uL Hgb 15.8 (13.5-17.5) g/dL Hct 44.4 (41-53) % MCV 87.2 (80-100) fL MCH 31.0 (26-34) PG MCHC 35.5 (30-36) % RDW 12.7 (11.6-14.8) % Plt Count 260 (150-400) X10^3/uL Neut % (Auto) 51.0 (50-75) % Lymph % (Auto) 40.1 H (25-40) % Rapides % (Auto) 7.0 (3-14) % Eos % (Auto) 1.1 L (2-4) % Baso % (Auto) 0.8 (0-2) % Neut # (Auto) 4800 (9376-6028) /uL Lymph # (Auto) 3800 (0365-9415) /uL [place]ides # (Auto) 700 (0-900) /uL Eos # (Auto) 100 (0-450) /uL Baso # (Auto) 100 (0-100) /uL Sodium 139 (137-145) mmol/L Potassium 4.0 (3.4-5.1) mmol/L Chloride 105 (98-107) mmol/L Carbon Dioxide 23 (22-32) mmol/L BUN 18 (9-20) mg/dL Creatinine 0.98 (0.66-1.25) mg/dL Estimated GFR > 60 (>60) mL/min BUN/Creatinine Ratio 18.4 (6-22) Glucose 95 (70-100) mg/dL Calcium 10.1 (8.4-10.2) mg/dL Total Bilirubin 1.0 (0.2-1.3) mg/dL AST 33 (17-59) IU/L ALT 41 (<50) IU/L Alkaline Phosphatase 61 (38-126) U/L Total Creatine Kinase 62 (55-170) U/L CK-MB (CK-2) TNP CK-MB (CK-2) Rel Index TNP Troponin I < 0.012 (0.01-0.034) ng/mL Total Protein 7.9 (6.3-8.2) g/dL Albumin 4.9 (3.5-5.0) g/dL Globulin 3.0 (1.7-4.1) g/dL Albumin/Globulin Ratio 1.6 (1.0-2.8) ECG Data Interpretation: Sinus rhythm heart rate [address] changes noted. T-wave inversions in lead 3 and V1 otherwise normal EKG. EKG also reviewed by attending Dr Velasco at 15:05 Rod-sinus rhythm rate 82 UT interval 152 QRS [address] changes T-wave inversion Discharge Plan Departure Patient Disposition: Home Clinical Impression: Laceration of hand, left Instructions: DI for Laceration Repair Activity Restrictions/Additional Instructions: Thank you for letting us be part of your care today in the emergency department. You had a laceration to your left hand which we repaired today. You did also have a syncopal episode where he passed out we suspect that this was called a vasovagal. This is fairly common for people who are dealing with pain or injuries or at the site of blood. You did recover from this okay and we were able to proceed with your repair. I recommend you have your sutures taken out in 7-10 days. Monitor for signs of infection, not placing you on antibiotics today as the hand has very good blood supply and typically these are not needed but if you do have any concern for infection do not hesitate to get re-evaluated immediately. If you have any persistent symptoms or pain after you get your stitches out please do not hesitate to get re-evaluated I do recommend he follow up with your primary care provider. We did place you in a wrist brace today for support and to discourage her from using her hand a lot until you get your stitches out. You do not have to wear this all the time but I encourage you to wear it during the day when you were active. In the evening it would be reasonable to do a Jorge wrap over the area as long as it is not tight--in order to protect your stitches. There is no evidence of an emergent or life threatening illness at this time, but follow up with your doctor in 1-2 days is recommended nonetheless to continue to rule out serious underlying causes of your symptoms. Please call the office for an appointment. Please return to the Emergency Department for any worsening or persistent symptoms. Please take medications as directed. Prescriptions: No Action gemfibrozil 600 mg tablet 600 mg PO BID Qty: 180 2RF Rx Instructions: TAKE ONE TABLET BY MOUTH TWICE DAILY zolpidem [Ambien] 10 mg tablet 10 mg PO BEDTIME Qty: 90 0RF Referrals: Geovanna Avilez MD [Primary Care Provider] - Stand Alone Forms: Patient Portal/API <Scarlett Velasco DO - Last Filed: 11/03/22 17:22> Cosign ED Attending Cosignature Attestation: Patient seen evaluated by myself. Laceration to left hand. When was being palpated and looked at patient got extremely nauseous lightheaded has a vasovagal episode. EKG does not show any abnormality he was bradycardic on monitor. Blood work overall reassuring. Was unresponsive for about a minute. I was immediately available in the department for consultation. Documentation has been reviewed.
[2022-11-02] MEDS: SODIUM CHLORIDE 0.9% 1,000 ML 1000 ML IV (14:55)
[2022-11-02 15:08] LABS: Add Manual Diff / Slide Review NO; Basophils Absolute Auto 100 /uL (0-100); Basophils Percent Auto 0.8 % (0-2); Eosinophils Absolute Auto 100 /uL (0-450); Eosinophils Percent Auto 1.1 % (2-4); Hematocrit 44.4 % (41-53); Hemoglobin 15.8 g/dL (13.5-17.5); Lymphocytes Absolute Auto 3800 /uL (1100-4500); Lymphocytes Percent Auto 40.1 % (25-40); Mean Corpuscular HGB Conc 35.5 % (30-36); Mean Corpuscular Volume 87.2 fL (80-100); Monocytes Absolute Auto 700 /uL (0-900); Neutrophils Absolute Auto 4800 /uL (1500-7000); Platelet Count 260 X10^3/uL (150-400); Red Blood Cell Count 5.09 X10^6/uL (4.5-5.9); Red Cell Distribution Width 12.7 % (11.6-14.8); White Blood Cell Count 9.4 X10^3/uL (4.5-11.0)
[2022-11-02 15:15] LABS: Alanine Aminotransferase 41 IU/L (<50); Albumin 4.9 g/dL (3.5-5.0); Albumin Globulin Ratio 1.6 (1.0-2.8); Alkaline Phosphatase 61 U/L (38-126); Aspartate Aminotransferase 33 IU/L (17-59); BUN Creatinine Ratio 18.4 (6-22); Blood Urea Nitrogen 18 mg/dL (9-20); Calcium 10.1 mg/dL (8.4-10.2); Carbon Dioxide 23 mmol/L (22-32); Chloride 105 mmol/L (98-107); Creatine Kinase 62 U/L (55-170); Estimated Glomerular Filt Rate > 60 mL/min (>60); Glucose 95 mg/dL (70-100); HEMOLYSIS < 15 (0-50); Sodium 139 mmol/L (137-145); Total Protein 7.9 g/dL (6.3-8.2)
[2022-11-02] MEDS: ONDANSETRON 4 MG ODT SL (15:16)
[2022-11-02] MEDS: LIDOCAINE 1% W/EPI 4 ML SUBCUT (15:18)
[2022-11-02 15:27] LABS: Troponin I < 0.012 ng/mL (0.01-0.034)
--- NOTE | 2022-11-02 15:40 | DI.RAD.S_ITS ---
PROCEDURE: XR HAND LT MIN 3V INDICATIONS: laceration medial palm base TECHNIQUE: 3 views of the hand(s) acquired. COMPARISON: None. FINDINGS: Bones: No fractures or dislocations. Carpal bones are normally aligned. No suspicious bony lesions. Age-appropriate bony degenerative changes are seen. Soft tissues: Soft tissue swelling is seen. No radiopaque foreign bodies are seen. IMPRESSION: No radiopaque foreign bodies are seen. Soft tissue swelling can be seen. No focal bony abnormality is seen. Dictated by: Doug Eric M.D. on 11/02/2022 at 15:07 Approved by: Doug Eric M.D. on 11/02/2022 at 15:08
== END 2022-11-02 16:51 | disposition home or self-care (01) ==
PROVIDERS: Emergency Provider Student in an Organized Health Care Education/Training Program; PCP Family Medicine
DX: S61.412A Laceration without foreign body of left hand, initial encounter (principal); W26.0XXA Contact with knife, initial encounter
CPT/HCPCS: 12001; 73130; 80053; 82550; 82962; 84484; 85025; 90471; 93005; 93010; 96360; 99284; 90715

== ENCOUNTER → 2022-11-19 08:09 | Outpatient (CLI) | payer OTHER, SELFPAY ==
[2022-11-09 12:31] VITALS: BMI 31.1
[2022-11-19 09:26] LABS: Add Manual Diff / Slide Review NO; Basophils Absolute Auto 100 /uL (0-100); Basophils Percent Auto 1.1 % (0-2); Eosinophils Absolute Auto 200 /uL (0-450); Eosinophils Percent Auto 3.4 % (2-4); Hematocrit 43.6 % (41-53); Lymphocytes Absolute Auto 2200 /uL (1100-4500); Mean Corpuscular HGB Conc 34.4 % (30-36); Mean Corpuscular Hemoglobin 30.1 PG (26-34); Mean Corpuscular Volume 87.7 fL (80-100); Monocytes Absolute Auto 500 /uL (0-900); Monocytes Percent Auto 7.9 % (3-14); Neutrophils Absolute Auto 3600 /uL (1500-7000); Neutrophils Percent Auto 54.6 % (50-75); Platelet Count 232 X10^3/uL (150-400); Red Blood Cell Count 4.97 X10^6/uL (4.5-5.9); Red Cell Distribution Width 12.5 % (11.6-14.8); White Blood Cell Count 6.7 X10^3/uL (4.5-11.0)
[2022-11-19 09:59] LABS: Alanine Aminotransferase 32 IU/L (<50); Albumin 4.7 g/dL (3.5-5.0); Albumin Globulin Ratio 1.6 (1.0-2.8); Alkaline Phosphatase 55 U/L (38-126); Aspartate Aminotransferase 28 IU/L (17-59); BUN Creatinine Ratio 24.4 (6-22); Bilirubin Total 0.7 mg/dL (0.2-1.3); Blood Urea Nitrogen 20 mg/dL (9-20); Calcium 9.4 mg/dL (8.4-10.2); Carbon Dioxide 25 mmol/L (22-32); Chloride 105 mmol/L (98-107); Cholesterol 213 mg/dL (140-199); Estimated Glomerular Filt Rate > 60 mL/min (>60); Globulin 2.9 g/dL (1.7-4.1); Glucose 88 mg/dL (70-100); HDL Cholesterol 49 mg/dL (40-60); LDL Cholesterol Calculated 129 mg/dL (<100); Potassium 4.4 mmol/L (3.4-5.1); Sodium 140 mmol/L (137-145); Total Protein 7.6 g/dL (6.3-8.2); Triglycerides 175 mg/dL (35-150)
[2022-11-19 10:25] LABS: TSH w/ Reflex to FT4 1.72 uIU/mL (0.47-4.68)
[2022-11-19 10:28] LABS: HEMOLYSIS < 15 (0-50)
[2022-11-19 10:30] LABS: Testosterone 498 ng/dL (71.8-623)
== END ==
PROVIDERS: PCP Family Medicine; Referring Provider Family Medicine; Visit Provider Family Medicine
DX: R68.82 Decreased libido (principal); R42 Dizziness and giddiness; E78.5 Hyperlipidemia, unspecified
CPT/HCPCS: 36415; 80053; 80061; 84403; 84443; 85025

== ENCOUNTER → 2024-02-18 11:38 | Outpatient (CLI) | payer OTHER, SELFPAY ==
[2022-11-09 12:31] VITALS: BMI 31.1
[2024-02-18 12:21] LABS: Add Manual Diff / Slide Review NO; Basophils Absolute Auto 100 /uL (0-100); Basophils Percent Auto 1.1 % (0-2); Eosinophils Absolute Auto 100 /uL (0-450); Eosinophils Percent Auto 2.4 % (2-4); Hematocrit 45.2 % (41-53); Hemoglobin 15.6 g/dL (13.5-17.5); Lymphocytes Absolute Auto 2400 /uL (1100-4500); Lymphocytes Percent Auto 43.1 % (25-40); Mean Corpuscular HGB Conc 34.6 % (30-36); Mean Corpuscular Hemoglobin 30.8 PG (26-34); Monocytes Absolute Auto 500 /uL (0-900); Monocytes Percent Auto 8.9 % (3-14); Neutrophils Absolute Auto 2400 /uL (1500-7000); Neutrophils Percent Auto 44.5 % (50-75); Platelet Count 206 X10^3/uL (150-400); Red Blood Cell Count 5.07 X10^6/uL (4.5-5.9); White Blood Cell Count 5.5 X10^3/uL (4.5-11.0)
[2024-02-18 12:43] LABS: Alanine Aminotransferase 46 IU/L (<50); Albumin 4.9 g/dL (3.5-5.0); Albumin Globulin Ratio 1.8 (1.0-2.8); Alkaline Phosphatase 50 U/L (38-126); Aspartate Aminotransferase 38 IU/L (17-59); BUN Creatinine Ratio 18.9 (6-22); Bilirubin Total 1.1 mg/dL (0.2-1.3); Blood Urea Nitrogen 17 mg/dL (9-20); Calcium 9.3 mg/dL (8.4-10.2); Carbon Dioxide 26 mmol/L (22-32); Chloride 106 mmol/L (98-107); Cholesterol 247 mg/dL (140-199); Estimated Glomerular Filt Rate > 60 mL/min (>60); Globulin 2.8 g/dL (1.7-4.1); Glucose 92 mg/dL (70-100); HDL Cholesterol 49 mg/dL (40-60); HEMOLYSIS < 15 (0-50); LDL Cholesterol Calculated 149 mg/dL (<100); Potassium 4.5 mmol/L (3.4-5.1); Sodium 139 mmol/L (137-145); Total Protein 7.7 g/dL (6.3-8.2); Triglycerides 245 mg/dL (35-150)
[2024-02-18 13:11] LABS: Prostate Specific Antigen 1.14 ng/mL (0.10-4.00)
[2024-02-18 13:12] LABS: TSH w/ Reflex to FT4 0.89 uIU/mL (0.47-4.68)
[2024-02-18 13:14] LABS: Testosterone 425 ng/dL (71.8-623)
== END ==
LOC: LAB 11:39
PROVIDERS: PCP Family Medicine; Referring Provider Family Medicine; Visit Provider Family Medicine
DX: Z13.220 Encounter for screening for lipoid disorders (principal); Z13.29 Encounter for screening for other suspected endocrine disorder; R39.11 Hesitancy of micturition; N52.9 Male erectile dysfunction, unspecified; Z12.5 Encounter for screening for malignant neoplasm of prostate
CPT/HCPCS: 36415; 80053; 80061; 84153; 84403; 84443; 85025

== ENCOUNTER → 2024-03-25 10:24 | Outpatient (CLI) | payer OTHER, SELFPAY ==
[2022-11-09 12:31] VITALS: BMI 31.1
[2024-03-25 11:30] LABS: Iron 136 ug/dL (49-181)
[2024-03-25 11:43] LABS: Total Iron Binding Capacity 352 ug/dL (261-462)
[2024-03-25 11:56] LABS: Ferritin 165 ng/mL (18-464)
== END ==
LOC: LAB 10:25
PROVIDERS: PCP Family Medicine; Referring Provider Nurse Practitioner; Visit Provider Nurse Practitioner
DX: G25.81 Restless legs syndrome (principal); E83.10 Disorder of iron metabolism, unspecified
CPT/HCPCS: 36415; 82728; 83540; 83550

== ENCOUNTER 2024-07-28 08:18 | Emergency (ER) | payer OTHER, SELFPAY ==
[2022-11-09 12:31] VITALS: BMI 31.1
[2024-07-28] VITALS (8 sets, daily range): BP systolic 123–143; BP diastolic 71–92; PULSE 87–111; RESP 15–28; TEMP 36.4; O2SAT 91–96; BMI 31.6
--- NOTE | 2024-07-28 08:34 | EKG_ITS ---
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
--- NOTE | 2024-07-28 08:42 | ED_ITS ---
HPI - Abdominal Pain General Chief Complaint: Abdominal Pain Stated Complaint: abd pain Time Seen by Provider: 07/28/24 08:32 Source: patient Mode of arrival: Ambulatory History of Present Illness HPI narrative: Patient here for abdominal pain nausea polydipsia polyuria. Patient is postop day 2 status post colonoscopy by his GI doctor at [facility]. States he did polyp biopsy. Since then no rectal bleeding. No hematemesis. Patient states he does have history of small intestine bacterial overgrowth followed by his GI doctor and was prescribed amoxicillin again as he had in the past. He usually gets treatment 2 or 3 times a year. However he never has any side effects from it. Denies any chest pain or back pain. He did see a child day care teacher the other day for medical clearance and evaluation for erectile dysfunction however he denies any cardiac history. He does not want anything for pain at this time. Patient states he felt sweaty and weak yesterday. Had near-syncope/fainting episode. Patient in no distress. Related Data Previous Rx's Medication Instructions Recorded gemfibrozil 600 mg tablet 600 mg PO BID #180 tabs 02/13/24 zolpidem 10 mg tablet (Ambien) 10 mg PO BEDTIME insomnia #90 tabs 06/08/24 tamsulosin 0.4 mg capsule 0.8 mg (2 x 0.4 mg) PO DAILY #60 06/09/24 caps ciprofloxacin HCl 500 mg tablet 500 mg PO BID #14 tabs 07/28/24 (Cipro) hydrocodone 5 mg-acetaminophen 325 1 tab PO Q6H PRN pain #20 tabs 07/28/24 mg tablet metronidazole 500 mg tablet 500 mg PO TID #21 tabs 07/28/24 promethazine 25 mg tablet 25 mg PO TID PRN nausea and 07/28/24 vomiting #14 tabs Allergies Allergy/AdvReac Type Severity Reaction Status Date / Time No Known Drug Allergies Allergy Verified 07/21/24 07:57 Review of Systems Review of Systems Narrative: GENERAL: Negative chills, fatigue, malaise, fever, sweats. HEENT: Negative sinus pain, ear pain, sore throat RESPIRATORY: Negative dyspnea, cough CARDIOVASCULAR: Negative chest pain, palpitations GASTROINTESTINAL: Positive nausea, negative vomiting, positive abdominal pain : Negative dysuria, frequency, hematuria MUSCULOSKELETAL: Negative muscle or bony pain SKIN: Negative rash, skin lesions NEUROLOGIC: Negative weakness, numbness ROS Unobtainable: All systems reviewed & are unremarkable except as noted in HPI and below Patient History Medical History BPH w urinary obs/LUTS Erectile dysfunction due to arterial disease Genital herpes Small intestinal bacterial overgrowth Insomnia Hyperlipidemia Surgical History Hx of appendectomy H/O hand surgery Hx of shoulder surgery H/O Spinal surgery Family History Father Myocardial infarction Stroke Mother Ovarian cancer Social History marital status: household members: spouse housing: house education level: college occupational status: employed 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 EYES: Pupils equal round ENT: Mucous membranes moist. NECK: Trachea midline. CARDIOVASCULAR: Regular rate and rhythm RESPIRATORY: Clear to auscultation. Breath sounds equal bilaterally. No wheezes, rales, or rhonchi. GASTROINTESTINAL: Abdomen soft, abdomen is soft, slightly distended, diffuse tenderness but no peritoneal signs no guarding or rebound. No CVA tenderness. Pain with leaning forward. EXTREMITIES: No gross deformities. BACK: No flank tenderness. NEURO: AOx4. SKIN: Warm and dry PSYCH: Not anxious, is cooperative Initial Vital Signs Initial Vital Signs: Vital Signs Pulse Rate 111 H 07/28/24 08:23 Pulse Oximetry 96 07/28/24 08:23 Course Orders Ordered: ED Orders 07/28/24 08:25 EKG-12 Lead Stat 07/28/24 08:30 Complete Blood Count AUTO DIFF Stat Comprehensive Metabolic Panel Stat Lipase Stat 07/28/24 08:41 CT abdomen pelvis w con Stat Ondansetron HCl (Ondansetron 4 Mg/2 Ml Inj) 4 mg IV NOW PRN PRN Reason: Nausea And Vomiting Ondansetron HCl (Ondansetron 4 Mg Odt) 4 mg PO NOW PRN PRN Reason: Nausea And Vomiting Discontinued Medications Ciprofloxacin (Ciprofloxacin 250 Mg Tablet) 500 mg PO NOW ONE Stop: 07/28/24 09:51 Last Admin: 07/28/24 10:14 Dose: 500 mg Documented By: ROBER Sodium Chloride (Normal Saline 0.9%) 1,000 mls @ 1,000 mls/hr IV BOLUS ONE Stop: 07/28/24 09:40 Last Infusion: 07/28/24 10:15 Dose: Infused Documented By: Admin: 07/28/24 09:25 Dose: 1,000 mls/hr Documented By: KEVIN Metronidazole (Metronidazole 500 Mg Tablet) 500 mg PO NOW ONE Stop: 07/28/24 09:52 Last Admin: 07/28/24 10:14 Dose: 500 mg Documented By: ROBER Vital Signs Vital signs: Vital Signs - 8 hr 07/28/24 08:23 07/28/24 08:25 07/28/24 08:25 Temperature Pulse Rate 111 H 98 H Respiratory Rate 28 H Blood Pressure 143/86 H Pulse Oximetry 96 94 Oxygen Delivery Method 07/28/24 08:28 07/28/24 08:30 07/28/24 08:37 Temperature 97.5 F L Pulse Rate 92 H 90 Respiratory Rate 18 25 H Blood Pressure 143/86 H 141/80 H Pulse Oximetry 91 94 Oxygen Delivery Method Room Air 07/28/24 08:37 07/28/24 09:06 07/28/24 09:30 Temperature Pulse Rate 92 H 94 H 88 Respiratory Rate 15 21 24 Blood Pressure Pulse Oximetry 95 95 91 Oxygen Delivery Method 07/28/24 09:30 07/28/24 10:00 07/28/24 10:00 Temperature Pulse Rate 87 Respiratory Rate 22 Blood Pressure 123/71 129/92 H Pulse Oximetry 94 Oxygen Delivery Method MDM - Abdominal Pain Lab Data 07/28/24 08:30 07/28/24 08:30 Labs: Lab Results 07/28/24 Range/Units 08:30 WBC 8.5 (4.5-11.0) X10^3/uL RBC 4.80 (4.5-5.9) X10^6/uL Hgb 14.8 (13.5-17.5) g/dL Hct 42.1 (41-53) % MCV 87.7 (80-100) fL MCH 30.8 (26-34) PG MCHC 35.1 (30-36) % RDW 12.7 (11.6-14.8) % Plt Count 201 (150-400) X10^3/uL Neut % (Auto) 73.4 (50-75) % Lymph % (Auto) 17.2 L (25-40) % Dupage % (Auto) 7.3 (3-14) % Eos % (Auto) 1.6 L (2-4) % Baso % (Auto) 0.5 (0-2) % Neut # (Auto) 6300 (0743-3660) /uL Lymph # (Auto) 1500 (1464-5212) /uL Dupage # (Auto) 600 (0-900) /uL Eos # (Auto) 100 (0-450) /uL Baso # (Auto) 0 (0-100) /uL Sodium 137 (137-145) mmol/L Potassium 3.9 (3.4-5.1) mmol/L Chloride 108 H (98-107) mmol/L Carbon Dioxide 19 L (22-32) mmol/L BUN 13 (9-20) mg/dL Creatinine 0.89 (0.66-1.25) mg/dL Estimated GFR > 60 (>60) mL/min BUN/Creatinine Ratio 14.6 (6-22) Glucose 111 H (70-100) mg/dL Calcium 9.5 (8.4-10.2) mg/dL Total Bilirubin 1.1 (0.2-1.3) mg/dL AST 24 (17-59) IU/L ALT 29 (<50) IU/L Alkaline Phosphatase 53 (38-126) U/L Total Protein 7.7 (6.3-8.2) g/dL Albumin 4.6 (3.5-5.0) g/dL Globulin 3.1 (1.7-4.1) g/dL Albumin/Globulin Ratio 1.5 (1.0-2.8) Lipase 50 (23-300) U/L Imaging Data CT scan - abdomen/pelvis: Radiologist's Impression: [address] [address] [address] Scan Report Signed Patient: Orlando Perez MR#: [id number] : 1965 Acct:[id number] Age/Sex: 59 / M Date of Service: 07/28/24 Loc: ED Accession Number: [id number] Procedure: CT abdomen pelvis w con Ordering Provider: Juvencio Franklin MD PROCEDURE: CT ABDOMEN PELVIS W CON INDICATIONS: IV contrast only/abdominal pain. Pain since colonoscopy on Friday. TECHNIQUE: After the administration of intravenous contrast, axial sections acquired from the lung bases to the pubic symphysis. Coronal and sagittal reformats were performed. For radiation dose reduction, the following was used: automated exposure control, adjustment of mA and/or kV according to patient size. COMPARISON: [facility], CT, CT ABDOMEN PELVIS W CON, 12/02/2019, 12:47. FINDINGS: Image quality: Diagnostic. Lower Chest: No significant findings. ABDOMEN: Liver: No solid mass. Gallbladder: No radiopaque gallstones or wall thickening. Biliary ducts: No biliary dilation. Pancreas: No ductal dilation. Spleen: Size is within normal limits. Adrenal Glands: No adrenal nodules. Kidneys and Ureters: No hydronephrosis. No solid mass. No complex renal cystic lesion which requires follow up. Stomach and Bowel: There are rare diverticuli present. There is inflammatory change in the fat adjacent to a diverticulum in the descending colon. This is well seen on images 99 and 100 of series 2. This can either represent non complicated diverticulitis or inflammatory change related to biopsy. Peritoneum: No abnormal intraperitoneal fluid. No free air. Ventral Wall: No significant ventral hernia. Abdominal Nodes: No retroperitoneal or mesenteric adenopathy by size criteria. Vessels: Aorta and inferior vena cava are normal in size. PELVIS: Pelvic Organs: Mild prostatomegaly.. Bladder: No bladder wall thickening, accounting for underdistention. Pelvic Nodes: No enlarged lymph nodes. Miscellaneous: Small fat containing left inguinal hernia. Bones: No aggressive osseous abnormality. Degenerative change. IMPRESSION: There is either acute mild non complicated descending colonic diverticulitis or inflammatory change in the fat related to a colonic biopsy, in this patient who underwent recent colonoscopy. Recommend clinical correlation regarding whether not a biopsy was performed in this location. There is no free air or abscess. Dictated by: Adrien Etienne M.D. on 07/28/2024 at 9:26 Approved by: Adrien Etienne M.D. on 07/28/2024 at 9:34 [facility] Narrative Medical decision making narrative: Patient here for abdominal pain nausea polydipsia polyuria. Patient is postop day 2 status post colonoscopy by his GI doctor at [facility]. States he did polyp biopsy. Since then no rectal bleeding. No hematemesis. Patient states he does have history of small intestine bacterial overgrowth followed by his GI doctor and was prescribed amoxicillin again as he had in the past. He usually gets treatment 2 or 3 times a year. However he never has any side effects from it. Denies any chest pain or back pain. He did see a child day care teacher the other day for medical clearance and evaluation for erectile dysfunction however he denies any cardiac history. He does not want anything for pain at this time. Patient states he felt sweaty and weak yesterday. Had near-syncope/fainting episode. Patient in no distress. After history and exam CBC CMP lipase CT abdomen pelvis Zofran normal saline urinalysis [facility] Medical records reviewed: No recent visit for this complaint Differential considered: Includes but not limited to bowel obstruction bowel perforation pancreatitis cholecystitis cholelithiasis ileus Lab Test results independently reviewed as above. Pertinent findings: WBC 8.5 hemoglobin 14.8 BUN 13 creatinine 0.89 AST 24 ALT 29 lipase 50 Independently reviewed EKG EKG normal sinus rhythm rate [address] elevation or depression Imaging studies independently reviewed: CT abdomen pelvis likely diverticulitis Consultations: None indicated at this time Treatments: Zofran normal saline Cipro Flagyl Re-evaluations: 10:00 a.m.. Updated patient results. Pain is controlled. Reviewed with patient likely diverticulitis and likely not from biopsy. Patient has had biopsies and colonoscopies and medications for small intestine bacterial overgrowth and has never had reactions like this before. So likely diverticulitis developed incidentally. He agrees with treatment plan. Return precautions reviewed. He will contact his GI doctor today to inform of his treatment changes. Work note provided. Prescriptions provided. Discussion: Appropriate for discharge home. Appropriate for treatment for diverticulitis as stated above. Work note provided. Return precautions reviewed and he desires discharge home. Diagnosis: Acute diverticulitis Discharge Plan Departure Patient Disposition: Home Clinical Impression: Diverticulitis Instructions: DI for Diverticulitis Activity Restrictions/Additional Instructions: Your exam and laboratory studies are reassuring. It is likely UR developing diverticulitis. Not related to your colonoscopy. Antibiotics have been started. Prescription for antibiotics and pain medication has been provided for you. No driving operating machinery when taking the prescribed pain medication. Please contact your vending machine collector, Dr. Joselo Doran today to inform him you are being treated for diverticulitis. Please review discharge instruction information. Work note has been provided for you. Return if worse if any questions or concerns. Do not take the prescribed pain medication with sleep medication Prescriptions: New hydrocodone-acetaminophen 5-325 mg tablet 1 tab PO Q6H PRN (Reason: pain) Qty: 20 0RF metronidazole 500 mg tablet 500 mg PO TID Qty: 21 0RF ciprofloxacin HCl [Cipro] 500 mg tablet 500 mg PO BID Qty: 14 0RF promethazine 25 mg tablet 25 mg PO TID PRN (Reason: nausea and vomiting) Qty: 14 0RF No Action gemfibrozil 600 mg tablet 600 mg PO BID Qty: 180 2RF Rx Instructions: TAKE ONE TABLET BY MOUTH TWICE DAILY zolpidem [Ambien] 10 mg tablet 10 mg PO BEDTIME Qty: 90 1RF tamsulosin 0.4 mg capsule 0.8 mg PO DAILY Qty: 60 12RF Referrals: Chevy Doran MD [Non-Staff] - Geovanna Avilez MD [Primary Care Provider] - Stand Alone Forms: Patient Portal/API/Survey, Work Release Note
[2024-07-28 08:52] LABS: Add Manual Diff / Slide Review NO; Basophils Absolute Auto 0 /uL (0-100); Basophils Percent Auto 0.5 % (0-2); Eosinophils Absolute Auto 100 /uL (0-450); Eosinophils Percent Auto 1.6 % (2-4); Hematocrit 42.1 % (41-53); Hemoglobin 14.8 g/dL (13.5-17.5); Lymphocytes Absolute Auto 1500 /uL (1100-4500); Lymphocytes Percent Auto 17.2 % (25-40); Mean Corpuscular HGB Conc 35.1 % (30-36); Mean Corpuscular Hemoglobin 30.8 PG (26-34); Mean Corpuscular Volume 87.7 fL (80-100); Monocytes Absolute Auto 600 /uL (0-900); Monocytes Percent Auto 7.3 % (3-14); Neutrophils Absolute Auto 6300 /uL (1500-7000); Neutrophils Percent Auto 73.4 % (50-75); Platelet Count 201 X10^3/uL (150-400); Red Cell Distribution Width 12.7 % (11.6-14.8); White Blood Cell Count 8.5 X10^3/uL (4.5-11.0)
[2024-07-28 09:06] LABS: Alanine Aminotransferase 29 IU/L (<50); Albumin 4.6 g/dL (3.5-5.0); Albumin Globulin Ratio 1.5 (1.0-2.8); Alkaline Phosphatase 53 U/L (38-126); Aspartate Aminotransferase 24 IU/L (17-59); BUN Creatinine Ratio 14.6 (6-22); Bilirubin Total 1.1 mg/dL (0.2-1.3); Blood Urea Nitrogen 13 mg/dL (9-20); Calcium 9.5 mg/dL (8.4-10.2); Carbon Dioxide 19 mmol/L (22-32); Chloride 108 mmol/L (98-107); Estimated Glomerular Filt Rate > 60 mL/min (>60); Globulin 3.1 g/dL (1.7-4.1); Glucose 111 mg/dL (70-100); HEMOLYSIS < 15 (0-50); Lipase 50 U/L (23-300); Potassium 3.9 mmol/L (3.4-5.1); Sodium 137 mmol/L (137-145); Total Protein 7.7 g/dL (6.3-8.2)
[2024-07-28] MEDS: SODIUM CHLORIDE 0.9% 1,000 ML 1000 ML IV (09:25)
[2024-07-28] MEDS: CIPROFLOXACIN 250 MG TABLET 500 MG PO (10:14)
[2024-07-28] MEDS: metroNIDAZOLE 500 MG TABLET PO (10:14)
== END 2024-07-28 10:24 | disposition home or self-care (01) ==
PROVIDERS: Emergency Provider Emergency Medicine; PCP Family Medicine
DX: K57.92 Diverticulitis of intestine, part unspecified, without perforation or abscess without bleeding (principal); I45.10 Unspecified right bundle-branch block; R55 Syncope and collapse; R11.0 Nausea
CPT/HCPCS: 36415; 74177; 80053; 83690; 85025; 93005; 96360; 99284; Q9967

== ENCOUNTER → 2024-08-16 08:02 | Outpatient (CLI) | payer OTHER, SELFPAY ==
[2022-11-09 12:31] VITALS: BMI 31.1
[2024-08-16 09:40] LABS: Adenovirus Not Detected (Not Detect); B. parapertussis Not Detected (Not Detecte); Bordetella pertussis Not Detected (Not Detect); Chlamydophila pneumoniae Not Detected (Not Detect); Coronavirus 229E Not Detected (Not Detect); Coronavirus HKU1 Not Detected (Not Detect); Coronavirus NL 63 Not Detected (Not Detect); Coronavirus OC43 Not Detected (Not Detect); Human Metapneumovirus Not Detected (Not Detect); Human Rhinovirus/Enterovirus Not Detected (Not Detect); Influenza A Not Detected (Not Detect); Influenza B Not Detected (Not Detect); Mycoplasma pneumoniae Not Detected (Not Detect); Parainfluenza Virus 1 Not Detected (Not Detect); Parainfluenza Virus 2 Not Detected (Not Detect); Parainfluenza Virus 3 Not Detected (Not Detect); Parainfluenza Virus 4 Not Detected (Not Detect); Respiratory Syncytial Virus Not Detected (Not Detect); SARS- CoV-2 Not Detected (Not Detecte)
== END ==
PROVIDERS: PCP Family Medicine; Visit Provider Nurse Practitioner Family
DX: J02.9 Acute pharyngitis, unspecified (principal); R05.1 Acute cough
CPT/HCPCS: 87070; 87633

== ENCOUNTER → 2024-08-16 08:32 | Outpatient (CLI) | payer OTHER, SELFPAY ==
[2022-11-09 12:31] VITALS: BMI 31.1
--- NOTE | 2024-08-16 08:34 | DI.RAD.S_ITS ---
PROCEDURE: XR CHEST 2V INDICATIONS: Cough TECHNIQUE: 2 views of the chest were acquired. COMPARISON: Outside Facility, RG, CT CALCIUM SCORING, 07/31/2024, 13:59. [facility], CR, XR CHEST 2V, 10/30/2019, 10:59. FINDINGS: Surgical changes and devices: ACDF. Lungs and pleura: No consolidation identified. No pleural effusions or pneumothorax. Mediastinum: Mediastinal contours are unchanged. Asymmetric elevation of the right hemidiaphragm. Heart size is within normal limits. Bones and chest wall: No suspicious bony abnormalities. Soft tissues appear unremarkable. IMPRESSION: No acute cardiopulmonary abnormality is seen. Dictated by: Steve Sofia M.D. on 08/16/2024 at 10:31 Approved by: Steve Sofia M.D. on 08/16/2024 at 10:33
== END ==
PROVIDERS: PCP Family Medicine; Referring Provider Nurse Practitioner Family; Visit Provider Nurse Practitioner Family
DX: R05.1 Acute cough (principal); J02.9 Acute pharyngitis, unspecified
CPT/HCPCS: 71046; 87070; 87633

== ENCOUNTER → 2025-02-14 09:59 | Outpatient (CLI) | payer OTHER, SELFPAY ==
[2024-08-18 15:33] VITALS: BMI 31.1
--- NOTE | 2025-02-14 10:01 | DI.RAD.S_ITS ---
PROCEDURE: XR SHOULDER RT MIN 2V INDICATIONS: shoulder injury TECHNIQUE: 3 views of the shoulder were acquired. COMPARISON: None. FINDINGS: Bones: No fractures or dislocations. No suspicious bony lesions. Visualized ribs appear intact. Soft tissues: No suspicious soft tissue calcifications. IMPRESSION: No acute bony abnormality. Approved by: Rafael Myaa M.D. on 02/14/2025 at 17:36
== END ==
PROVIDERS: PCP Family Medicine; Referring Provider Family Medicine; Visit Provider Family Medicine
DX: M25.519 Pain in unspecified shoulder (principal)
CPT/HCPCS: 73030

== ENCOUNTER → 2025-02-28 16:45 | Outpatient (CLI) | payer OTHER, SELFPAY ==
[2024-08-18 15:33] VITALS: BMI 31.1
--- NOTE | 2025-02-28 16:46 | DI.MRI.S_ITS ---
PROCEDURE: MR SHOULDER RT WO CON INDICATIONS: shoulder pain - right TECHNIQUE: Noncontrast oblique coronal T2 fast spin echo with fat saturation, oblique sagittal T1 spin echo and T2 fast spin echo with fat saturation, axial T1 spin echo and T2 fast spin echo with fat saturation through the shoulder. COMPARISON: None. FINDINGS: Image quality: Excellent. Rotator cuff: Low to moderate grade articular and bursal surface partial thickness tear involving distal supraspinatus at its insertion on the humeral head is seen extending to musculotendinous junction. Low-grade articular surface partial-thickness tear involving distal infraspinatus at its insertion on the humeral head is also noted. Low- grade partial-thickness tear involving superior fibers of distal subscapularis is seen. No full-thickness rotator cuff tendon rupture. Sagittal images demonstrate no significant rotator cuff muscle atrophy. Bones and bursae: No bone marrow contusions or fractures. [id number] acromioclavicular joint osteoarthritis and mild glenohumeral joint osteoarthritis. Type 2 acromion without an os acromiale. Small to moderate amount of subacromial subdeltoid bursal fluid, no loose bodies. Capsule and soft tissues: Signal abnormality and fraying involving superior anterior right glenoid labrum suggestive of superior anterior labral tear. Thickened proximal long head of biceps tendon with intrasubstance T2 hyperintense signal near its proximal insertion is seen. IMPRESSION: 1. Low to moderate grade articular and bursal surface partial thickness tear involving distal supraspinatus extending to musculotendinous junction. Low-grade articular surface partial-thickness tear involving distal infraspinatus. Low-grade partial- thickness tear involving superior to mid fibers of distal subscapularis. No full-thickness rotator cuff tendon rupture. No significant rotator cuff muscle atrophy. 2. [id number] acromioclavicular joint osteoarthritis and glenohumeral joint osteoarthritis. No fracture or dislocation. Small to moderate amount of subacromial subdeltoid bursal fluid, no loose bodies. 3. Suggestion of superior anterior glenoid labral tear. 4. Tendinosis and low-grade partial-thickness tear involving proximal intra- articular portion of long head of biceps. Dictated by: Braulio Reed M.D. on 03/01/2025 at 14:54 Approved by: Braulio Reed M.D. on 03/01/2025 at 14:57
== END ==
LOC: MRI 16:45
PROVIDERS: PCP Family Medicine; Referring Provider Family Medicine; Visit Provider Family Medicine
DX: M75.111 Incomplete rotator cuff tear or rupture of right shoulder, not specified as traumatic (principal); M19.011 Primary osteoarthritis, right shoulder; M25.519 Pain in unspecified shoulder; S46.111A Strain of muscle, fascia and tendon of long head of biceps, right arm, initial encounter
CPT/HCPCS: 73221

== ENCOUNTER → 2025-03-23 14:32 | Outpatient (CLI) | payer OTHER, SELFPAY ==
[2024-08-18 15:33] VITALS: BMI 31.1
--- NOTE | 2025-03-23 14:36 | DI.US.S_ITS ---
PROCEDURE: US INJECTION TENDON SHEATH INDICATIONS: US guided prox bicep tendon, r shoulder injection TECHNIQUE: The indications, alternatives, benefits, risks, and complications of the procedure were explained to the patient. Written informed consent was obtained and placed in the chart. The patient was placed in an appropriate position on the fluoroscopy table, and a site was chosen for percutaneous access under ultrasound guidance. Local anesthetic was administered using a 1% lidocaine solution. A hypodermic or spinal needle was then used to access the symptomatic joint. Intra-articular location of the needle tip was confirmed by real time ultrasound imaging, followed by steroid administration. The needle was then withdrawn, and a bandage applied to the puncture site. COMPARISON: None. FINDINGS: Joint injected: Right proximal biceps tendon sheath Medications injected: 1.5 mL of 40 mg/mL Kenalog and 0.5% Ropivacaine mixture. Complications: None. IMPRESSION: Successful ultrasound guided administration of steroid and anaesthetic solution into the right proximal biceps tendon sheath. Dictated by: Wojciech Bowman M.D. on 03/23/2025 at 16:24 Approved by: Wojciech Bowman M.D. on 03/23/2025 at 16:27
== END ==
LOC: US 14:35
PROVIDERS: PCP Family Medicine; Referring Provider Orthopaedic Surgery; Visit Provider Radiology Diagnostic Radiology
DX: M75.21 Bicipital tendinitis, right shoulder (principal)
CPT/HCPCS: 20550; 76942

== ENCOUNTER → 2025-06-21 11:37 | Outpatient (CLI) | payer OTHER, SELFPAY ==
[2025-06-06 15:25] VITALS: BMI 31.1
[2025-06-21 12:56] LABS: Add Manual Diff / Slide Review NO; Hematocrit 45.2 % (41-53); Hemoglobin 16.0 g/dL (13.5-17.5); Lymphocytes Absolute Auto 1800 /uL (1100-4500); Mean Corpuscular HGB Conc 35.4 % (30-36); Mean Corpuscular Hemoglobin 30.6 PG (26-34); Mean Corpuscular Volume 86.6 fL (80-100); Platelet Count 194 X10^3/uL (150-400)
[2025-06-21 13:14] LABS: Hemoglobin A1C% w Est Avg Glu 5.4 % (4.0-6.0)
[2025-06-21 13:29] LABS: Alanine Aminotransferase 31 IU/L (<50); Albumin 5.2 g/dL (3.5-5.0); Albumin Globulin Ratio 1.8 (1.0-2.8); Alkaline Phosphatase 56 U/L (38-126); Blood Urea Nitrogen 17 mg/dL (9-20); Calcium 10.0 mg/dL (8.4-10.2); Carbon Dioxide 21 mmol/L (22-32); Chloride 105 mmol/L (98-107); Cholesterol 251 mg/dL (140-199); Estimated Glomerular Filt Rate > 60 mL/min (>60); Globulin 2.9 g/dL (1.7-4.1); Glucose 88 mg/dL (70-99); HDL Cholesterol 53 mg/dL (40-60); HEMOLYSIS < 15 (0-50); Potassium 4.4 mmol/L (3.4-5.1); Sodium 137 mmol/L (137-145); Total Protein 8.1 g/dL (6.3-8.2); Triglycerides 189 mg/dL (35-150)
[2025-06-21 13:57] LABS: Thyroid Stimulating Hormone 1.13 uIU/mL (0.47-4.68)
== END ==
PROVIDERS: PCP Family Medicine; Referring Provider Family Medicine; Visit Provider Family Medicine
DX: Z13.220 Encounter for screening for lipoid disorders (principal); R53.83 Other fatigue; R35.89 Other polyuria; R73.9 Hyperglycemia, unspecified
CPT/HCPCS: 36415; 80053; 80061; 83036; 84443; 85025

== ENCOUNTER 2025-07-21 06:20 | Day surgery (SDC) | payer OTHER, SELFPAY ==
[2025-07-07 11:44] VITALS: BMI 31.1
[2025-07-11 09:50] VITALS: BMI 29718.3
[2025-07-21] VITALS (9 sets, daily range): BP systolic 116–143; BP diastolic 67–93; PULSE 81–100; RESP 14–18; TEMP 36.2–36.7; O2SAT 93–98
--- NOTE | 2025-07-21 06:44 | P.OP.PRE_ITS ---
Pre-operative Note
--- NOTE | 2025-07-21 06:44 | PM.PREOP ---
Pre-operative Note Interval Note History & Physical reviewed/Exam performed by Physician: Yes Changes to H&P: No
[2025-07-21] MEDS: LACTATED RINGERS 1,000 ML 84 ML IV ×2 (07:20→09:33)
[2025-07-21] MEDS: ACETAMINOPHEN IV 1,000 MG/100 ML VIAL 400 MG IV (07:36)
--- NOTE | 2025-07-21 08:38 | SUR.OPER ---
Beach chair with operative arm positioned on padded valero stand per surgeon direction. Lower body on padded OR bed with gel pad under feet. Head in foam padded head cradle, secured with straps. Non-operative arm secured <90 degrees abduction. Pillow under knees. Safety belt at thigh. Cloth tape over blanket over lower legs. Lateral hip post on operative side. All pressure points padded and protected. Final position approved by surgeon.
[2025-07-21] MEDS: BUPivacaine 0.25% (PF) 10 ML VIAL 30 ML INJ (09:01)
[2025-07-21] MEDS: SODIUM CHLORIDE IRRIG SOLUTION 6,000 ML, EPINEPHrine 6 MG IRR ×5 (09:03→10:44)
[2025-07-21] MEDS: SODIUM CHLORIDE IRRIG SOLUTION 3,000 ML, EPINEPHrine 3 MG IRR (10:46)
--- NOTE | 2025-07-21 11:39 | P.OP_ITS ---
Operative Date/Time/Diagnoses
--- NOTE | 2025-07-21 11:39 | PM.OP.1 ---
Operative Date/Time/Diagnoses Date of procedure: 07/21/25 Time of procedure: 07:45 Pre-op diagnosis: Right AC joint osteoarthritis, biceps tendinopathy and possible rotator cuff tear Post-op diagnosis: other Procedure & Clinicians Procedure: Right shoulder arthroscopy, distal clavicle excision, biceps tenodesis, subacromial decompression and rotator cuff repair Same procedure(s) as scheduled: Yes Surgeon: Manuel Richard Assisted?: Yes Scheduler: Mary Tiwari Anesthesia Type: General Operative Notes Findings: Right shoulder AC joint osteoarthritis, biceps tendinopathy and SLAP tear, full-thickness rotator cuff tear Closure Type: primary Specimen(s): none sent Applied: none Estimated Blood Loss (mL): 20 Blood products transfused: none Procedure in detail: Date of Operation: 07/21/25 Preoperative diagnosis: Right Shoulder Rotator Cuff Tear, Biceps Tendinopathy and Acromioclavicular Osteoarthritis Procedure performed: Right Shoulder Diagnostic Arthroscopy, Rotator Cuff Repair, Open Biceps Tenodesis and Open Distal Clavicle Excision Postoperative diagnosis: Same Primary Surgeon: Manuel Richard MD Secondary Surgeon: CAROLINA Malik Physician Scheduler was used throughout the entirety of the case. They assisted with room set up, patient positioning, draping, retraction, reduction, fixation and closure. They were essential for the success of the case. Anesthesia: General EBL: 20 ml Implants: Arthrex Knotless 2.6mm Fibertak x2 Arthrex Proximal Biceps Tenodesis Button Indication for Surgery: Nonoperative management failed to resolve symptoms. The risks, benefits, and alternatives were discussed. Risks included pain, bleeding, infection, damage to nearby structures, lack of symptom relief, implant complications, stiffness, need for further surgeries, DVT, PE, stroke, and even . They signed a written consent form. Examination Under Anesthesia: ROM: Forward flexion 170, abduction 170 Anterior load and shift: Grade 1 Posterior load and shift: Grade 1 Inferior sulcus: Grade 1 Diagnostic Findings: Rotator interval: Normal Biceps tendon & SLAP: Significant biceps tendon tendinopathy, posterior SLAP tear Subscapularis: Intact Rotator Cuff: Full-thickness supraspinatus tear with mild retraction HAGL: No HAGL Labrum: Intact Glenoid Cartilage: No chondromalacia Humeral Head Cartilage: No chondromalacia Procedure in Detail: The patient was met in the preoperative holding on the day of the procedure. Operative extremity was signed. Consent was verified. The patient desired to proceed. Regional anesthesia was obtained in the preoperative area. They were brought to the operating room and surrendered to anesthesia. Once general anesthesia was obtained they were placed in the beach chair position. All bony prominences were well-padded. They were then prepped and draped in the standard sterile fashion. A surgical timeout was held to confirm the patient procedure, identity, laterality, allergies, images, and antibiotics. All were in agreement and we proceeded. A standard diagnostic arthroscopy was performed utilizing posterior and anterior superior portal sites. The anterior superior portal site was created under direct visualization. The findings of the diagnostic arthroscopy can be found above. Biceps tendon was cut using arthroscopic scissors and debrided back with a sucker shaver. Mini-Open Subpectoral Biceps Tenodesis: We then turned our attention to the biceps tenodesis, a 4 cm longitudinal incision was made near the axillary fold centered over the inferior border of the pectoralis major tendon. Electrocautery was used to obtain hemostasis. The fascia was opened with dissection scissors in line with the course of the neurovascular structures. Blunt digital dissection was used to identify the intertubercular groove just under the pectoralis major tendon. The long head of the biceps tendon was visualized within this interval. The short head of the biceps was retracted with my finger and the right angle was used to deliver the tendon of the long head of the biceps out of the wound. The groove was then prepared with a kuhn elevator. The drill for the biceps button was placed at the inferior edge of the pec major tendon within the groove. The drill was then removed and the button placed. The tendon was then reduced down on to the surface of the humerus. The suture limbs were cut and the wound was irrigated. The subcutaneous tissue was closed using interrupted 2-0 Vicryl followed by running 3-0 Monocryl in subcuticular fashion. Subacromial Decompression: The obturator was placed into the subacromial space along the underside of the acromion from the posterior portal passing lateral to the coracoacromial ligament and out the anterior incision. The crystal cannula was threaded over this and the serfas wand was placed into the cannula. The camera was inserted and the cannula was backed out until the camera and instruments were in the subacromial space. The serfas wand was used to excise tissue from the underside of the acromion and establish a small space for viewing. The leading edge of the CA ligament was released. A lateral incision was made after localization with a spinal needle. The shaver was inserted and the bursa was excised completely, taking care to excise all bursa from the anterior and lateral gutters. The rotator cuff was protected throughout. The rotator cuff was probed and found to have a full-thickness tear. The shaver was then used to cachorro the underside of the acromion of all portions that were downsloping or not smooth. The shoulder was taken through a range of motion and the bursa was found to be fully excised. Rotator Cuff Repair: The rotator cuff tear was identified from the subacromial space. It was decided that this would require a single row fixation. The frayed edges of the rotator cuff were debrided back. The new footprint was debrided of soft tissue. We use the self punching implant anteriorly. This was then repeated approximately 1cm posterior to the first. Sutures were then pulled out of the shoulder. A scorpion was used to pass the sutures through the medial aspect of the rotator cuff x4. The sutures through the rotator cuff were then passed through the anchor with the passing stitch. We then pulled on the passed sutures which secured the rotator cuff down to the footprint. On further examination of the rotator cuff we found that there was a small dog-ear posteriorly. Using our free ends of our suture we then through 1 more pass posteriorly and hand tied it back down to the posterior anchor. This closed down the dog-ear and secured the remaining portions of the rotator cuff. The shoulder was taken through a range of motion which demonstrated a fully repair rotator cuff which moved continuously with the movement of the shoulder. Final images were obtained and the instruments were removed from the shoulder. The incisions were closed with 3-0 Nylon, sterile dressing and sling were applied. Postoperative Plan: Same day discharge Sling use for 6 weeks Physical Therapy consult placed Follow up with ortho in 2 weeks for suture removal and clinical examination Manuel Richard MD Complications: none Post-operative Condition: stable Disposition: PACU
[2025-07-21] MEDS: hydrOXYzine 50 MG/ML INJ 25 MG IM (12:06)
[2025-07-21] MEDS: ONDANSETRON 4 MG/2 ML INJ IV (12:06)
== END 2025-07-21 13:30 | disposition home or self-care (01) ==
PROVIDERS: PCP Family Medicine; Referring Provider Orthopaedic Surgery; Visit Provider Orthopaedic Surgery
PROC: (CPT 29827; principal; 2025-07-21 07:45)
DX: M19.011 Primary osteoarthritis, right shoulder (principal); M75.51 Bursitis of right shoulder; S43.431A Superior glenoid labrum lesion of right shoulder, initial encounter; M75.121 Complete rotator cuff tear or rupture of right shoulder, not specified as traumatic; G89.18 Other acute postprocedural pain
CPT/HCPCS: 29827; 29826; 29828; 64415; C1713; J0131; J0165; J0689; J1100; J2405; J2704; J3010; J3410; J3490; J7120